=== PATIENT | female | born 1955 | race Caucasian/White ===

== ENCOUNTER → 2020-01-12 19:15 | Outpatient (ROUT) | payer MEDICARE, SELFPAY ==
[2020-01-12 20:01] LABS: Add Manual Diff / Slide Review NO; Basophils Absolute Auto 100 /uL (0-100); Basophils Percent Auto 0.6 % (0-2); Eosinophils Absolute Auto 200 /uL (0-450); Eosinophils Percent Auto 2.4 % (2-4); Hematocrit 41.3 % (36-46); Hemoglobin 13.5 g/dL (12.0-16.0); Lymphocytes Absolute Auto 3600 /uL (1100-4500); Lymphocytes Percent Auto 35.6 % (25-40); Mean Corpuscular HGB Conc 32.7 % (30-36); Mean Corpuscular Hemoglobin 31.2 PG (26-34); Mean Corpuscular Volume 95.5 fL (80-100); Monocytes Absolute Auto 700 /uL (0-900); Monocytes Percent Auto 6.6 % (3-14); Neutrophils Absolute Auto 5500 /uL (1500-7000); Neutrophils Percent Auto 54.8 % (50-75); Platelet Count 237 X10^3/uL (150-400); Red Blood Cell Count 4.33 X10^6/uL (4.0-5.2); Red Cell Distribution Width 13.3 % (11.6-14.8)
[2020-01-12 20:09] LABS: HEMOLYSIS < 15 (0-50); Iron 112 ug/dL (37-170)
[2020-01-12 20:14] LABS: Alanine Aminotransferase 18 IU/L (<35); Albumin 3.8 g/dL (3.5-5.0); Albumin Globulin Ratio 1.5 (1.0-2.8); Alkaline Phosphatase 78 U/L (38-126); Aspartate Aminotransferase 29 IU/L (14-36); Bilirubin Total 0.4 mg/dL (0.2-1.3); Blood Urea Nitrogen 16 mg/dL (7-17); C-Reactive Protein Quant 0.6 mg/dL (<1.0); Calcium 8.8 mg/dL (8.4-10.2); Carbon Dioxide 27 mmol/L (22-32); Chloride 108 mmol/L (98-107); Cholesterol 158 mg/dL (140-199); Estimated Glomerular Filt Rate > 60.0 mL/min (>60); Globulin 2.6 g/dL (1.7-4.1); Glucose 77 mg/dL (80-110); HDL Cholesterol 65 mg/dL (40-60); HEMOLYSIS < 15 (0-50); LDL Cholesterol Calculated 69 mg/dL (<100); Potassium 3.9 mmol/L (3.4-5.1); Sodium 138 mmol/L (137-145); Total Protein 6.4 g/dL (6.3-8.2); Triglycerides 121 mg/dL (35-150)
[2020-01-12 20:20] LABS: Percent Iron Saturation 31 % (15-50); Total Iron Binding Capacity 367 ug/dL (265-497); Transferrin 289 mg/dL (206-381)
[2020-01-12 20:21] LABS: Rheumatoid Factor < 8.6 IU/mL (<12.0)
[2020-01-12 20:29] LABS: Erythrocyte Sedimentation Rate 4 MM/HR (0-20)
[2020-01-12 20:36] LABS: Vitamin D 25 Hydroxy (D3) 50.7 ng/mL (30.0-100.0)
[2020-01-12 20:47] LABS: Ferritin 41 ng/mL (11-264)
[2020-01-12 21:01] LABS: Vitamin B12 986 pg/mL (239-931)
[2020-01-14 17:42] LABS: ANA Screen, IFA Negative (.)
== END ==
PROVIDERS: Visit Provider Physician Assistant
DX: R32 Unspecified urinary incontinence (principal); E78.2 Mixed hyperlipidemia; M79.10 Myalgia, unspecified site; E55.9 Vitamin D deficiency, unspecified; G89.4 Chronic pain syndrome; M54.9 Dorsalgia, unspecified; M54.30 Sciatica, unspecified side
CPT/HCPCS: 80053; 80061; 82306; 82607; 82728; 83540; 83550; 85025; 85651; 86038; 86140; 86430

== ENCOUNTER → 2020-05-18 11:04 | Outpatient (CLI) | payer MEDICARE, MEDICAID, SELFPAY ==
--- NOTE | 2020-05-18 | DI.RAD.S_ITS ---
PROCEDURE: XR CHEST 2V INDICATIONS: Encounter for screening for malignant neoplasm of respiratory TECHNIQUE: 2 views of the chest were acquired. COMPARISON: None. FINDINGS: Surgical changes and devices: None. Lungs and pleura: Lungs are clear. No pleural effusions or pneumothorax. Mediastinum: Mediastinal contours are normal. Heart size is normal. Bones and chest wall: No suspicious bony abnormalities. Soft tissues appear unremarkable. IMPRESSION: No acute cardiopulmonary disease. Dictated by: Adalgisa Dominguez M.D. on 05/18/2020 at 11:41 Approved by: Adalgisa Dominguez M.D. on 05/18/2020 at 11:42
== END ==
PROVIDERS: PCP Physician Assistant; Referring Provider Physician Assistant; Visit Provider Physician Assistant
DX: Z12.2 Encounter for screening for malignant neoplasm of respiratory organs (principal); Z87.891 Personal history of nicotine dependence
CPT/HCPCS: 71046

== ENCOUNTER → 2020-05-25 16:34 | Outpatient (CLI) | payer MEDICARE, MEDICAID, SELFPAY ==
--- NOTE | 2020-05-25 16:38 | DI.MG.S_ITS ---
BILATERAL DIGITAL SCREENING MAMMOGRAM 3D/2D WITH CAD: 05/25/2020 CLINICAL: Routine screening. Breast cancer. Family history of breast cancer. Comparison is made to exam dated: 12/27/2018 mammogram - outside location. There are scattered fibroglandular elements in both breasts. Current study was also evaluated with a Computer Aided Detection (CAD) system. There is an irregular equal density asymmetry in the left breast posterior depth superior region seen on the mediolateral oblique view only. This is more prominent and increased in size. No other significant masses, calcifications, or other findings are seen in either breast. IMPRESSION: INCOMPLETE: NEEDS ADDITIONAL IMAGING EVALUATION The irregular equal density asymmetry in the left breast resembles a post-surgical scar and is indeterminate. Additional views with possible ultrasound are recommended. This exam was interpreted at Station ID: [id number]. NOTE: For mammograms, a report in lay terms will be sent to the patient. Approximately 15% of breast malignancies will not be visualized mammographically. In the management of a palpable breast mass, a negative mammogram must not discourage biopsy of a clinically suspicious lesion. Electronically Signed By: Jaquan ospina/eve:05/26/2020 08:00:59 letter sent: Additional Imaging Needed ACR BI-RADS Category 0: Incomplete 3340F
== END ==
PROVIDERS: PCP Internal Medicine; Referring Provider Physician Assistant; Visit Provider Physician Assistant
DX: Z12.31 Encounter for screening mammogram for malignant neoplasm of breast (principal); C50.912 Malignant neoplasm of unspecified site of left female breast; Z80.3 Family history of malignant neoplasm of breast
CPT/HCPCS: 77063; 77067

== ENCOUNTER → 2020-06-03 15:00 | Outpatient (CLI) | payer MEDICARE, MEDICAID, SELFPAY ==
--- NOTE | 2020-06-03 15:03 | DI.MG.S_ITS ---
UNILATERAL LEFT DIGITAL DIAGNOSTIC MAMMOGRAM 3D/2D WITH ADDITIONAL VIEWS: 06/03/2020 CLINICAL: Additional evaluation requested from prior study. Comparison is made to exams dated: 05/25/2020 mammogram - [facility], 12/27/2018 mammogram - outside location, 05/07/2009 mammogram - [facility], 06/09/2014 localization, and 06/22/2014 breast MRI - outside location. There are scattered fibroglandular elements in left breast. There is an irregular equal density asymmetry in the left breast posterior depth superior region seen on the mediolateral oblique view only. This is less prominent on additional view and there appears to be interspersed fat. No other significant masses or calcifications are seen in the breast. IMPRESSION: INCOMPLETE: NEEDS ADDITIONAL IMAGING EVALUATION The irregular equal density asymmetry in the left breast resembles a post-surgical scar and is indeterminate. A targeted ultrasound is recommended and will immediately follow. This exam was interpreted at Station ID: [id number]. NOTE: For mammograms, a report in lay terms will be sent to the patient. Approximately 15% of breast malignancies will not be visualized mammographically. In the management of a palpable breast mass, a negative mammogram must not discourage biopsy of a clinically suspicious lesion. Electronically Signed By: Steve Beltran M.D. slc/:06/03/2020 16:33:17 ACR BI-RADS Category 0: Incomplete [id number]
--- NOTE | 2020-06-03 15:03 | DI.US.S_ITS ---
LIMITED ULTRASOUND OF LEFT BREAST: 06/03/2020 CLINICAL: Patient returns today to evaluate a focal asymmetry in the left breast. Comparison is made to exams dated: 06/03/2020 mammogram, 05/25/2020 mammogram - [facility], 12/27/2018 mammogram, and 06/22/2014 breast MRI - outside location. Color flow and real-time ultrasound of the left breast 11-1 o'clock region were performed. العلي scale images of the real-time examination were reviewed. No mass in the region of the focal asymmetry seen on mammogram. IMPRESSION: BENIGN There is no sonographic evidence of malignancy. No mass in the region of the focal asymmetry seen on mammogram. This is most consistent with fibroglandular tissue or scar tissue. A 1 year screening mammogram is recommended. Exam findings were conveyed to the patient. This exam was interpreted at Station ID: [id number]. Electronically Signed By: Steve Beltran M.D. slc/:06/03/2020 17:07:22 letter sent: Normal Exam Ultrasound BI-RADS: 2 Benign
== END ==
PROVIDERS: PCP Internal Medicine; Referring Provider Internal Medicine; Visit Provider Internal Medicine
DX: R92.8 Other abnormal and inconclusive findings on diagnostic imaging of breast (principal); C50.912 Malignant neoplasm of unspecified site of left female breast; N64.89 Other specified disorders of breast
CPT/HCPCS: 76642; 77065; G0279

== ENCOUNTER → 2020-06-16 15:20 | Outpatient (CLI) | payer MEDICARE, MEDICAID, SELFPAY ==
[2020-06-16] MEDS: COVID-19 VACC #1, MRNA(MOD) 100 MCG/0.5 ML VIAL IM (15:31)
== END ==
PROVIDERS: PCP Internal Medicine; Visit Provider Internal Medicine
DX: Z23 Encounter for immunization (principal)
CPT/HCPCS: 0011A; 91301

== ENCOUNTER → 2020-07-14 15:01 | Outpatient (CLI) | payer MEDICARE, MEDICAID, SELFPAY ==
[2020-07-14] MEDS: COVID-19 VACC #2, MRNA(MOD) 100 MCG/0.5 ML VIAL IM (15:09)
== END ==
PROVIDERS: PCP Internal Medicine; Visit Provider Internal Medicine
DX: Z23 Encounter for immunization (principal)
CPT/HCPCS: 0012A; 91301

== ENCOUNTER 2020-10-08 18:39 | Emergency (ER) | payer MEDICARE, MEDICAID, SELFPAY ==
[2020-10-08 19:04] VITALS: BP 105/58; PULSE 97; RESP 18; TEMP 36.9; O2SAT 95; BMI 28.9
--- NOTE | 2020-10-08 19:09 | DI.RAD.S_ITS ---
PROCEDURE: XR CHEST 2V INDICATIONS: short of breath TECHNIQUE: 2 views of the chest were acquired. COMPARISON: [facility], CR, XR CHEST 2V, 05/18/2020, 11:19. FINDINGS: Surgical changes and devices: None. Lungs and pleura: Lungs are clear. No pleural effusions or pneumothorax. Mediastinum: Mediastinal contours are normal. Heart size is normal. Bones and chest wall: No suspicious bony abnormalities. Soft tissues appear unremarkable. Degenerative changes are seen in the spine. IMPRESSION: No acute cardiopulmonary abnormality. Dictated by: Aneudy Ortega M.D. on 10/08/2020 at 20:17 Approved by: Aneudy Ortega M.D. on 10/08/2020 at 20:18
[2020-10-08 19:33] LABS: COVID19 -Nasal RAPID Negative (Negative)
--- NOTE | 2020-10-08 21:48 | ED_ITS ---
HPI - URI/Sore Throat General Chief Complaint: Upper Respiratory Symptoms Stated Complaint: NASAL DRIP AND COUGH Time Seen by Provider: 10/08/20 21:40 Source: patient Mode of arrival: Ambulatory History of Present Illness HPI Narrative: 65-year-old woman with cough over the last 3-4 days with significant postnasal drip seem to irritate all of this. Medical history is significant for breast cancer, ADHD and of prior stroke for which she is on aspirin and atorvastatin. She does not have a productive cough, she is not having fevers but notes she is having sweats, the cough is keeping her up at night , she describes no lower extremity edema no abdominal pain no vomiting or diarrhea. Related Data Home Medications Medication Instructions Recorded Confirmed aspirin 81 mg tablet PO 03/16/20 atorvastatin 10 mg tablet 10 mg PO DAILY 03/16/20 03/16/20 cholecalciferol (vitamin D3) 25 25 mcg PO DAILY 03/16/20 03/16/20 mcg (1,000 unit) capsule (Vitamin D3) cyanocobalamin (vitamin B-12) 1,000 mcg PO DAILY 03/16/20 03/16/20 1,000 mcg tablet (Vitamin B-12) hydrocodone 5 mg-acetaminophen 325 1 tab PO Q6H PRN 03/16/20 03/16/20 mg tablet loratadine 10 mg tablet (Claritin) 10 mg PO DAILY 03/16/20 03/16/20 methylphenidate HCl 20 mg tablet 20 mg PO BID 03/16/20 03/16/20 (Ritalin) omega-3 fatty acids-fish oil 684 1,200 cap PO 03/16/20 mg-1,200 mg capsule,delayed release oxybutynin chloride 5 mg tablet 5 mg PO BID 03/16/20 03/16/20 turmeric 400 mg capsule 800 mg PO 03/16/20 Previous Rx's Medication Instructions Recorded tamoxifen 20 mg tablet 20 mg PO DAILY #90 tab 03/17/20 benzonatate 100 mg capsule 100 mg PO TID PRN #14 cap 10/08/20 fluticasone propionate 50 2 spray INTRANASAL DAILY #16 g 10/08/20 mcg/actuation nasal spray,suspension (Flonase Allergy Relief) Allergies Allergy/AdvReac Type Severity Reaction Status Date / Time bee venom protein (honey bee) Allergy Severe Anaphylaxis Verified 10/08/20 19:08 penicillin V Allergy Mild Swelling Verified 10/08/20 19:08 of Lip/Tongue/Throat prednisone AdvReac Mild Confusion Verified 10/08/20 19:08 Review of Systems Review of Systems Narrative: Remainder of complete review of systems is otherwise unremarkable except for that included in the HPI. Patient History Social History Smoking Status: Current some day smoker Smoking Status: Current some day smoker tobacco type: cigarettes alcohol intake frequency: other Substance Use Type: does not use Exam Narrative Exam Narrative: General: Moderately ill-appearing with significant nonproductive cough but Able to give a complete and coherent history. Well- nourished well-developed HEENT: Moist mucous membranes, normal sclera with reactive pupils, mildly erythematous posterior pharynx with posterior cobblestoning and mild cervical adenopathy Neck: No JVD, supple Respiratory: Lungs are essentially clear to auscultation, mild anterior sc attered wheezing that resolves with deep breathing and full and symmetrical air movement Cardiac: Regular rate and rhythm no murmurs no bruits Abdomen: Soft, nontender, good bowel tones, no flank pain Skin: Warm and dry, no rashes Neurologic: Grossly neurologically intact with no obvious asymmetries or abnormalities Extremities: No trauma, well perfused, no lower extremity edema Psych: Cooperative, appropriate insight and affect Initial Vital Signs Initial Vital Signs: Vital Signs Temperature 98.5 F 10/08/20 19:04 Pulse Rate 97 H 10/08/20 19:04 Respiratory Rate 18 10/08/20 19:04 Blood Pressure 105/58 L 10/08/20 19:04 Pulse Oximetry 95 10/08/20 19:04 Course Orders Ordered: ED Orders 10/08/20 19:09 XR chest 2V Stat 10/08/20 19:10 COVID19 -Nasal swab/Pre-Proc Stat Vital Signs Vital signs: Vital Signs - 8 hr 10/08/20 19:04 Temperature 98.5 F Pulse Rate 97 H Respiratory Rate 18 Blood Pressure 105/58 L Pulse Oximetry 95 MDM - URI/Sore Throat Lab Data Labs: Lab Results 10/08/20 Range/Units 19:10 SARS-CoV-2 (PCR) Negative (Negative) Imaging Data Chest x-ray: Radiologist's Impression: FINDINGS: Surgical changes and devices: None. Lungs and pleura: Lungs are clear. No pleural effusions or pneumothorax. Mediastinum: Mediastinal contours are normal. Heart size is normal. Bones and chest wall: No suspicious bony abnormalities. Soft tissues appear unremarkable. Degenerative changes are seen in the spine. IMPRESSION: No acute cardiopulmonary abnormality. Dictated by: Aneudy Ortega M.D. on 10/08/2020 at 20:17 MDM Narrative Medical decision making narrative: 65-year-old woman with cough over the last 3- 4 days with significant postnasal drip seem to irritate all of this. No evidence of pneumonia on physical exam or on chest x-ray. She is COVID negative. Will suggest that she treat the postnasal drip over the next couple nights with Afrin in the evenings to help with sleeping and Flonase in the mornings to prevent a symptoms in the 1st place. Will give her a prescription for Tessalon Perles and encouraged her to return should she have worsening symptoms after a brief period of improvement. She is safe for home discharge at this time Discharge Plan Departure Patient Disposition: Home Clinical Impression: Upper respiratory infection Qualifiers: URI type: unspecified viral URI Qualified Code(s): J06.9 - Acute upper respiratory infection, unspecified Instructions: DI for Viral Upper Respiratory Infection -- Adult Activity Restrictions/Additional Instructions: Thank you for coming in today You do not have COVID and you do not have pneumonia You do have significant postnasal drip and a viral syndrome that is making that worse. For the significant postnasal drip at night and to help you sleep, consider using [id number] Afrin nose spray. This is safe to use for 3-4 days in a row To help treat the problem of the postnasal drip in the 1st place, using Flonase nasal spray daily 1st thing in the morning can be helpful Use Tessalon Perles to help control the cough If you notice that you are getting dramatically worse, have increasing fevers or now a productive cough, you do need to come back to the ER for further evaluation Prescriptions were electronically transmitted to [facility] Prescriptions: New benzonatate 100 mg capsule 100 mg PO TID PRN (Reason: cough) Qty: 14 RF: 0 fluticasone propionate [Flonase Allergy Relief] 50 mcg/actuation spray,suspension 2 spray intranasal DAILY Qty: 16 RF: 0 No Action atorvastatin 10 mg Tablet 10 mg PO DAILY RF: 0 hydrocodone-acetaminophen 5-325 mg Tablet 1 tab PO Q6H PRN (Reason: Pain (Scale Score 1-3)) RF: 0 methylphenidate HCl [Ritalin] 20 mg Tablet 20 mg PO BID RF: 0 cyanocobalamin (vitamin B-12) [Vitamin B-12] 1,000 mcg Tablet 1,000 mcg PO DAILY RF: 0 aspirin 81 mg Tablet PO RF: 0 oxybutynin chloride 5 mg Tablet 5 mg PO BID RF: 0 loratadine [Claritin] 10 mg Tablet 10 mg PO DAILY RF: 0 cholecalciferol (vitamin D3) [Vitamin D3] 25 mcg (1,000 unit) Capsule 25 mcg PO DAILY RF: 0 [place] 3 Fish Oil 684-1,200 mg Capsule,Delayed Release(Dr/Ec) 1,200 cap PO RF: 0 turmeric 400 mg Capsule 800 mg PO RF: 0 tamoxifen 20 mg Tablet 20 mg PO DAILY Qty: 90 RF: 3 Referrals: Phoenix Almaraz MD [Primary Care Provider] -
[2020-10-08 22:01] VITALS: RESP 18; O2SAT 96
[2020-10-08] MEDS: BENZONATATE 100 MG CAPSULE PO (22:04)
== END 2020-10-08 22:05 | disposition home or self-care (01) ==
PROVIDERS: Emergency Provider Emergency Medicine; PCP Internal Medicine
DX: J06.9 Acute upper respiratory infection, unspecified (principal); R09.82 Postnasal drip; R05 Cough; Z20.822 Contact with and (suspected) exposure to COVID-19
CPT/HCPCS: 71046; 87635; 99283; C9803

== ENCOUNTER → 2020-11-19 12:35 | Outpatient (CLI) | payer MEDICARE, MEDICAID, SELFPAY ==
--- NOTE | 2020-11-19 | DI.CT.S_ITS ---
PROCEDURE: CT CHEST WO CON INDICATIONS: Orthopnea, worsening short of breath TECHNIQUE: Noncontrast 5 mm thick sections acquired from the pulmonary apices to the posterior costophrenic angles. 1 mm lung window, 5 mm thick coronal and sagittal and 7 mm axial MIP reformats were then acquired. For radiation dose reduction, the following was used: automated exposure control, adjustment of mA and/or kV according to patient size. COMPARISON: None. FINDINGS: Image quality: Excellent. Lungs and pleura: No acute air space opacities. No pleural effusions or pneumothorax. Central and peripheral airways are patent and normal in caliber. Minimal platelike atelectasis noted in the right lung base. Mediastinum: Heart size is normal. No pericardial effusion. No mediastinal adenopathy by size criteria. Thoracic aorta and central pulmonary arteries are normal in size. Esophagus is normal in caliber. No hiatal hernia. Bones and chest wall: No suspicious bony lesions. No vertebral body compression fractures. No axillary or supraclavicular adenopathy by size criteria. Thyroid gland unremarkable. Moderate degenerative disc disease and arthropathy noted in the mid to lower lumbar spine with anterolateral osteophytes. Abdomen: Visualized upper abdominal solid organs and bowel loops appear normal in the absence of contrast. IMPRESSION: Moderate thoracic spine degenerative disc disease and arthropathy. Otherwise unremarkable CT of the chest Approved by: Ravin Reno M.D. on 11/19/2020 at 12:33
== END ==
PROVIDERS: PCP Physician Assistant; Referring Provider Internal Medicine; Visit Provider Internal Medicine
DX: R06.01 Orthopnea (principal); M51.34 Other intervertebral disc degeneration, thoracic region; M47.814 Spondylosis without myelopathy or radiculopathy, thoracic region; R06.02 Shortness of breath
CPT/HCPCS: 71250

== ENCOUNTER → 2021-03-28 11:19 | Outpatient (CLI) | payer MEDICARE, MEDICAID, SELFPAY ==
--- NOTE | 2021-03-28 | DI.RAD.S_ITS ---
PROCEDURE: XR THORACIC SPINE 2V INDICATIONS: Chronic pain syndrome TECHNIQUE: 3 views of the thoracic spine were acquired. COMPARISON: [facility], CT, CT CHEST WO CON, 11/19/2020, 12:39. [facility], CR, XR CERVICAL SPINE 2V OR 3V, 03/28/2021, 11:31. [facility], CR, XR LUMBAR SPINE 2-3V, 03/28/2021, 11:31. FINDINGS: Bones: No fractures or dislocations. No suspicious bony lesions. 12 pairs of ribs are noted, and appear intact where visualized. Lumbar spine scoliosis. Moderate degenerative change in the thoracic spine. Soft tissues: No paravertebral stripe thickening. IMPRESSION: Moderate degenerative change in the thoracic spine. Dictated by: Steve Beltran M.D. on 03/28/2021 at 14:05 Approved by: Steve Beltran M.D. on 03/28/2021 at 14:07
--- NOTE | 2021-03-28 | DI.RAD.S_ITS ---
PROCEDURE: XR CERVICAL SPINE 2V OR 3V INDICATIONS: Chronic pain syndrome TECHNIQUE: 3 view(s) of the cervical spine were acquired. COMPARISON: [facility], CR, XR THORACIC SPINE 2V, 03/28/2021, 11:31. FINDINGS: Bones: No fractures or dislocations to the C7 level. The lateral masses of C1 appear intact on the odontoid view. Loss of lordosis which could be related to muscle spasm, rigidity or simply positional. Multilevel disc degeneration, most notably and severe at the C4-C5, C5-C6, C6-C7 and C7-T1 levels. Grade 1 retrolisthesis C4-C5 and C5-C6. Moderate multilevel mid and lower cervical spine facet joint arthropathy and uncovertebral hypertrophy. Soft tissues: No prevertebral soft tissue swelling. IMPRESSION: Loss of lordosis and multilevel spondylosis. Dictated by: Arsenio Borges [facility] Interpreted: Clint Soliz MD on 03/28/2021 at 13:42 Transcribed by: FANNY on 03/28/2021 at 13:43 Approved by: Clint Soliz M.D. on 03/28/2021 at 17:26
--- NOTE | 2021-03-28 | DI.RAD.S_ITS ---
PROCEDURE: XR HAND LT MIN 3V INDICATIONS: Chronic pain syndrome TECHNIQUE: 3 views of the hand(s) acquired. COMPARISON: [facility], CR, XR HAND RT MIN 3V, 03/28/2021, 11:31. FINDINGS: Bones: No fractures or dislocations. Carpal bones are normally aligned. Polyarticular joint space narrowing with periarticular osteophytosis, severe involving the triscaphe joint, the 1st CMC and 2nd MCP joint. Hook osteophyte involves the 2nd metacarpal head. Juxta-articular lucencies are present involving the 1st CMC joint, the 2nd and 5th MCP joints as well as multiple interphalangeal joints. Boutonniere deformity of the thumb noted. Soft tissues: No suspicious soft tissue calcifications. IMPRESSION: Sequelae of radiographic findings suspicious for inflammatory arthropathy. Correlate clinically. Dictated by: Arsenio Borges [facility] Interpreted: Clint Soliz MD on 03/28/2021 at 13:44 Transcribed by: FANNY on 03/28/2021 at 13:46 Approved by: Clint Soliz M.D. on 03/28/2021 at 17:26
--- NOTE | 2021-03-28 | DI.RAD.S_ITS ---
PROCEDURE: XR HAND RT MIN 3V INDICATIONS: Chronic pain syndrome TECHNIQUE: 3 views of the hand(s) acquired. COMPARISON: None. FINDINGS: Bones: No fractures or dislocations. Chronic appearing bony fragment adjacent to the ulnar styloid likely related to remote injury. Carpal bones are normally aligned. No suspicious bony lesions. Polyarticular joint space narrowing with periarticular osteophyte formation, most notably and severe involving the triscaphe joint, the 1st CMC joint, the 2nd MCP joint and the 3rd DIP joint. Juxta-articular lucencies involve the 1st CMC joint as well as multiple interphalangeal joints. Hook osteophyte involves the 2nd MTP joint. Boutonniere deformity also is noted. Soft tissues: No suspicious soft tissue calcifications. IMPRESSION: Sequelae of radiographic findings suspicious for inflammatory arthropathy. Correlate clinically. Dictated by: Arsenio Borges [facility] Interpreted: Clint Soliz MD on 03/28/2021 at 13:39 Transcribed by: FANNY on 03/28/2021 at 13:41 Approved by: Clint Soliz M.D. on 03/28/2021 at 17:25
--- NOTE | 2021-03-28 | DI.RAD.S_ITS ---
PROCEDURE: XR LUMBAR SPINE 2-3V INDICATIONS: Chronic pain syndrome TECHNIQUE: 3 views of the lumbar spine were acquired. COMPARISON: None. FINDINGS: Bones: 5 [id number] vertebrae are present. There are multilevel degenerative changes with anterior osteophytes at multiple levels and facet arthrosis in the lower lumbar spine. There is rightward curvature of the lumbar spine with a Tejada angle of 22?. The sacroiliac joints are normal. Both hips have degenerative changes consistent with osteoarthritis, worse on the right. Disc space narrowing at L2-3, L3-4, and L5-S1 consistent with disc disease. Grade 1 anterolisthesis at L4-5 likely secondary to facet arthrosis. No vertebral body compression fractures. No suspicious bony lesions. Soft tissues: Overlying bowel gas pattern is normal. No suspicious soft tissue calcifications. IMPRESSION: Degenerative changes of the lumbar spine with multilevel disc disease, facet arthrosis, and dextroscoliosis of the lumbar spine. Dictated by: Horacio Sevilla M.D. on 03/28/2021 at 16:07 Approved by: Horacio Sevilla M.D. on 03/28/2021 at 16:09
== END ==
PROVIDERS: PCP Physician Assistant; Referring Provider Physician Assistant; Visit Provider Physician Assistant
DX: F11.90 Opioid use, unspecified, uncomplicated (principal); G89.4 Chronic pain syndrome; M51.34 Other intervertebral disc degeneration, thoracic region; M51.36 Other intervertebral disc degeneration, lumbar region; M41.9 Scoliosis, unspecified; M47.812 Spondylosis without myelopathy or radiculopathy, cervical region
CPT/HCPCS: 72040; 72070; 72100; 73130

== ENCOUNTER → 2021-05-26 14:44 | Outpatient (CLI) | payer MEDICARE, MEDICAID, SELFPAY ==
--- NOTE | 2021-05-26 14:45 | DI.MG.S_ITS ---
BILATERAL DIGITAL SCREENING MAMMOGRAM 3D/2D WITH CAD: 05/26/2021 CLINICAL: Routine screening. Family history of breast cancer. Comparison is made to exams dated: 06/03/2020 ultrasound, 06/03/2020 mammogram, 05/25/2020 mammogram - [facility], and 12/27/2018 mammogram - outside location. There are scattered fibroglandular elements in both breasts. Current study was also evaluated with a Computer Aided Detection (CAD) system. There are benign post operative findings in the left breast. No significant masses, calcifications, or other findings are seen in either breast. There has been no significant interval change. IMPRESSION: BENIGN There is no mammographic evidence of malignancy. A 1 year screening mammogram is recommended. This exam was interpreted at Station ID: [id number]. NOTE: For mammograms, a report in lay terms will be sent to the patient. Approximately 15% of breast malignancies will not be visualized mammographically. In the management of a palpable breast mass, a negative mammogram must not discourage biopsy of a clinically suspicious lesion. Electronically Signed By: Aneudy mckeon/eve:05/26/2021 16:03:21 letter sent: Normal Exam ACR BI-RADS Category 2: Benign Finding(s) 3342F
== END ==
PROVIDERS: PCP Physician Assistant; Referring Provider Physician Assistant; Visit Provider Physician Assistant
DX: Z12.31 Encounter for screening mammogram for malignant neoplasm of breast (principal)
CPT/HCPCS: 77063; 77067

== ENCOUNTER → 2022-01-05 12:05 | Outpatient (CLI) | payer MEDICARE, MEDICAID, SELFPAY ==
--- NOTE | 2022-01-05 12:09 | DI.RAD.S_ITS ---
PROCEDURE: XR KNEE LT 3V INDICATIONS: PAIN IN LT KNEE TECHNIQUE: 3 views of the knee were acquired. COMPARISON: [facility], , KNEE 3V RIGHT, 09/30/2008, 15:25. FINDINGS: Bones: No fractures or dislocations. Moderate tricompartmental osteoarthritis is seen with joint space narrowing, subchondral sclerosis and prominent marginal osteophyte formation most notably in medial femoral tibial compartment. No patellar subluxation. No suspicious bony lesions. Soft tissues: Moderate suprapatellar joint effusion is seen. Ill-defined calcification is seen posterior to left knee measures 1.6 x 2.6 cm in size and may represent intra-articular loose body. IMPRESSION: 1. Moderate tricompartmental osteoarthritis most notably in medial femoral tibial compartment. No fracture or dislocation. 2. Moderate joint effusion and possible loose body as above. Dictated by: Bert Sheppard M.D. on 01/05/2022 at 14:23 Approved by: Bert Sheppard M.D. on 01/05/2022 at 14:24
--- NOTE | 2022-01-05 12:09 | DI.RAD.S_ITS ---
PROCEDURE: XR FOOT RT MIN 3V INDICATIONS: Pain in left knee TECHNIQUE: 3 views of the foot were acquired. COMPARISON: None. FINDINGS: Bones: No fractures or dislocations. Mild right foot joint osteoarthritic changes are seen with joint space narrowing and subchondral sclerosis. No suspicious bony lesions. Soft tissues: No tibiotalar joint effusion. Achilles tendon appears normal. IMPRESSION: Mild right foot osteoarthritis. No fracture or dislocation. No gross soft tissue abnormalities. Dictated by: Bert Sheppard M.D. on 01/05/2022 at 14:24 Approved by: Betr Sheppard M.D. on 01/05/2022 at 14:25
== END ==
PROVIDERS: PCP Physician Assistant; Referring Provider Physician Assistant; Visit Provider Physician Assistant
DX: M17.12 Unilateral primary osteoarthritis, left knee (principal); M19.071 Primary osteoarthritis, right ankle and foot; M25.462 Effusion, left knee; M25.562 Pain in left knee; M79.671 Pain in right foot
CPT/HCPCS: 73562; 73630

== ENCOUNTER → 2022-04-26 13:09 | Outpatient (CLI) | payer OTHER, MEDICAID, SELFPAY ==
--- NOTE | 2022-04-26 13:14 | DI.RAD.S_ITS ---
PROCEDURE: XR CHEST 2V INDICATIONS: bilateral hip pain, left shoulder pain, smoker TECHNIQUE: 2 views of the chest were acquired. COMPARISON: [facility], CR, XR CHEST 2V, 10/08/2020, 19:06. FINDINGS: Surgical changes and devices: None. Lungs and pleura: Lungs are clear. No pleural effusions or pneumothorax. Mediastinum: Mediastinal contours are normal. Heart size is normal. Bones and chest wall: No suspicious bony abnormalities. Soft tissues appear unremarkable. IMPRESSION: No acute process. Dictated by: Vin Earl M.D. on 04/26/2022 at 14:44 Transcribed by: CATHLEEN on 04/26/2022 at 14:45 Approved by: Vin Earl M.D. on 04/26/2022 at 16:17
--- NOTE | 2022-04-26 13:14 | DI.RAD.S_ITS ---
PROCEDURE: XR HIP W PEL IF DONE BILAT 2V INDICATIONS: bilateral hip pain, left shoulder pain, smoker TECHNIQUE: AP pelvis with lateral view(s) of the bilateral hip(s). COMPARISON: None. FINDINGS: Bones: No fractures or dislocations. Pelvic ring appears intact. No suspicious bony lesions. Mild joint space narrowing and periarticular osteophyte formation at the bilateral hip joints. Soft tissues: The visualized bowel gas pattern is normal. No suspicious soft tissue calcifications. IMPRESSION: Bilateral hip osteoarthritis. No acute fracture. No osseous lesion. If symptoms and/or clinical suspicion for pathology persist, further assessment with repeat, or advanced imaging (e.g., CT, MRI, or bone scan) may be helpful for further assessment. Dictated by: Vin Earl M.D. on 04/26/2022 at 14:43 Transcribed by: CATHLEEN on 04/26/2022 at 14:44 Approved by: Vin Earl M.D. on 04/26/2022 at 16:16
--- NOTE | 2022-04-26 13:14 | DI.RAD.S_ITS ---
PROCEDURE: XR SHOULDER LT MIN 2V INDICATIONS: bilateral hip pain, left shoulder pain, smoker TECHNIQUE: 4 views of the shoulder were acquired. COMPARISON: [facility], CR, XR CHEST 2V, 10/08/2020, 19:06. FINDINGS: Bones: No fractures or dislocations. Sclerosis within the superomedial humeral head. Visualized ribs appear intact. Periarticular osteophyte formation at the acromioclavicular and glenohumeral joints. Soft tissues: No suspicious soft tissue calcifications. IMPRESSION: 1. Sclerosis within the left humeral head, which is indeterminate. Initial further assessment with shoulder MRI with and without intravenous contrast is recommended. Dictated by: Vin Earl M.D. on 04/26/2022 at 14:45 Approved by: Vin Earl M.D. on 04/26/2022 at 14:48
== END ==
PROVIDERS: PCP Physician Assistant; Referring Provider Physician Assistant; Visit Provider Physician Assistant
DX: M16.0 Bilateral primary osteoarthritis of hip (principal); M25.551 Pain in right hip; M25.552 Pain in left hip; M25.512 Pain in left shoulder; G89.29 Other chronic pain; F17.200 Nicotine dependence, unspecified, uncomplicated
CPT/HCPCS: 71046; 73030; 73521

== ENCOUNTER → 2022-05-09 14:51 | Outpatient (CLI) | payer OTHER, MEDICAID, SELFPAY ==
--- NOTE | 2022-05-09 | DI.MRI.S_ITS ---
PROCEDURE: MR SHOULDER LT WO/W CON INDICATIONS: Subchondral sclerosis of left shoulder TECHNIQUE: Noncontrast oblique coronal T1 spin echo and T2 fast spin echo with fat saturation, oblique sagittal T1 spin echo and T2 fast spin echo with fat saturation, axial T1 spin echo and T2 fast spin echo with fat saturation through the shoulder. Post-contrast oblique coronal, oblique sagittal, and axial T1 spin echo with fat saturation through the shoulder. COMPARISON: [facility], CR, XR SHOULDER LT MIN 2V, 04/26/2022, 13:14. FINDINGS: Image quality: Excellent. Rotator cuff: Mild supraspinatus and infraspinatus tendinosis without a full-thickness tear visualized. The teres minor and subscapularis tendons are intact. There is no disproportionate rotator cuff muscle atrophy. Mild edema within the medial supraspinatus muscle could indicate a low-grade strain. Bones and bursae: No acute trabecular bone injury or fracture. Diffuse full-thickness cartilage loss throughout the glenohumeral joint with subchondral sclerosis, marginal osteophyte formation, and chronic remodeling of the articular surfaces. Subchondral cystic changes are seen in the central glenoid. Chronic traction cystic changes are seen at the posterosuperior humeral head and greater tuberosity near the rotator cuff tendon insertions. There is a large glenohumeral effusion with moderate synovial hypertrophy. Bulging of the joint capsule is seen extending medially towards the spinoglenoid notch. No focal denervation changes are seen. A 7 mm intra-articular loose body is seen in the posterior joint capsule. Mild widening of the acromioclavicular joint may be related to prior postsurgical changes or remote prior injury. There is a trace amount of bursal thickening and enhancement along the subacromial/subdeltoid bursa. No suspicious enhancing intraosseous mass. Capsule and soft tissues: There is diffuse labral degeneration and chronic degenerative tearing. The proximal biceps long head tendon demonstrates mild tendinosis. The glenohumeral ligaments appear to be intact. IMPRESSION: 1. Diffuse full-thickness cartilage loss throughout the glenohumeral joint with subchondral sclerosis, subchondral cystic changes, and remodeling and flattening of the articular surfaces. Findings may be related to primary osteoarthrosis or a chronic indolent infectious or inflammatory process with superimposed degenerative changes. 2. Large glenohumeral effusion with moderate enhancing synovial hypertrophy as well as a 7 mm intra-articular loose body posteriorly. Bulging of the joint capsule is seen with fluid extending into the region of the spinoglenoid notch. No acute denervation or chronic denervation changes are seen. 3. Mild tendinosis of the proximal biceps long head tendon. 4. Mild supraspinatus and infraspinatus tendinosis without a significant rotator cuff tendon tear. Mild edema within the medial supraspinatus muscle could represent a low-grade strain. 5. Mild widening of the acromioclavicular joint may be secondary to prior postsurgical changes or a remote prior injury. 6. Mild subacromial/subdeltoid bursal thickening or bursitis. Approved by: Aneudy Ortega M.D. on 05/09/2022 at 16:43
== END ==
PROVIDERS: PCP Physician Assistant; Referring Provider Physician Assistant; Visit Provider Physician Assistant
DX: M25.512 Pain in left shoulder (principal); M25.819 Other specified joint disorders, unspecified shoulder; M25.412 Effusion, left shoulder
CPT/HCPCS: 73223

== ENCOUNTER → 2022-09-25 14:12 | Outpatient (CLI) | payer OTHER, SELFPAY ==
--- NOTE | 2022-09-25 | DI.MG.S_ITS ---
BILATERAL DIGITAL SCREENING MAMMOGRAM 3D/2D WITH CAD: 09/25/2022 CLINICAL: Routine screening. Bilateral history of breast Cancer. Family history of breast cancer. Comparison is made to exams dated: 05/26/2021 mammogram, 05/25/2020 mammogram - , and 12/27/2018 mammogram - outside location. There are scattered areas of fibroglandular density in both breasts (category b / 25%-50% glandular tissue). Current study was also evaluated with a Computer Aided Detection (CAD) system. There are benign post operative findings in the left breast. No significant masses, calcifications, or other findings are seen in either breast. There has been no significant interval change. IMPRESSION: BENIGN There is no mammographic evidence of malignancy. A 1 year screening mammogram is recommended. This exam was interpreted at Station ID: [id number]. NOTE: For mammograms, a report in lay terms will be sent to the patient. Approximately 15% of breast malignancies will not be visualized mammographically. In the management of a palpable breast mass, a negative mammogram must not discourage biopsy of a clinically suspicious lesion. Electronically Signed By: Derrek allen/eve:09/25/2022 15:49:16 copy to: Dorina Lee letter sent: Normal Exam ACR BI-RADS Category 2: Benign Finding(s) 3342F
== END ==
PROVIDERS: PCP Physician Assistant; Referring Provider Physician Assistant; Visit Provider Physician Assistant
DX: Z12.31 Encounter for screening mammogram for malignant neoplasm of breast (principal); Z85.3 Personal history of malignant neoplasm of breast; Z80.3 Family history of malignant neoplasm of breast
CPT/HCPCS: 77063; 77067

== ENCOUNTER → 2022-10-13 10:40 | Outpatient (CLI) | payer OTHER, SELFPAY ==
--- NOTE | 2022-10-13 10:41 | DI.NM.S_ITS ---
PROCEDURE: NM BONE SCAN WHOLE BODY RADIOPHARMACEUTICAL: 20.3 mCi Tc-99m MDP IV. INDICATIONS: Bone pain, left breast cancer TECHNIQUE: Delayed whole-body scintigrams were obtained approximately 3-4 hours after intravenous injection of radiotracer. Anterior and posterior views were acquired from vertex to feet. Additional left and right oblique views of the chest were obtained. COMPARISON: None. FINDINGS: Degenerative uptake of radiotracer at the acromioclavicular and glenohumeral joints as well as the left greater than right knee joints. The patient appears to be status post right knee medial compartment arthroplasty. No evidence of increased radiotracer uptake to indicate metastatic disease. IMPRESSION: 1. Osteoarthritis. 2. No evidence of metastatic disease. Dictated by: Vin Earl M.D. on 10/13/2022 at 15:05 Approved by: Vin Earl M.D. on 10/13/2022 at 15:07
== END ==
PROVIDERS: PCP Physician Assistant; Referring Provider Internal Medicine Hematology & Oncology; Visit Provider Internal Medicine Hematology & Oncology
DX: C50.912 Malignant neoplasm of unspecified site of left female breast (principal); M19.90 Unspecified osteoarthritis, unspecified site
CPT/HCPCS: 78306; A9503

== ENCOUNTER 2022-10-28 10:08 | Emergency (ER) | payer OTHER, SELFPAY ==
[2022-10-28 10:20] VITALS: BP 140/73; PULSE 90; RESP 14; TEMP 36.7; O2SAT 99; BMI 27.8
--- NOTE | 2022-10-28 10:26 | DI.RAD.S_ITS ---
PROCEDURE: XR CHEST 2V INDICATIONS: inhalation of soot TECHNIQUE: 2 views of the chest were acquired. COMPARISON: [facility], , XR CHEST 2V, 04/26/2022, 13:14. FINDINGS: Surgical changes and devices: None. Lungs and pleura: Lungs are clear. No pleural effusions or pneumothorax. Mediastinum: Mediastinal contours are normal. Heart size is normal. Bones and chest wall: No suspicious bony abnormalities. Soft tissues appear unremarkable. Degenerative dorsal spine changes IMPRESSION: No acute cardiopulmonary findings Approved by: Ravin Reno M.D. on 10/28/2022 at 10:19
--- NOTE | 2022-10-28 12:39 | ED_ITS ---
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 There is concern that the dust had some asbestos in it from the boat and maybe some soot. She immediately started coughing and clearing [place] mucus from her nose. She reports being treated by oxygen by EMS in [place] prior to transport, but unclear if she was desaturating at that time. She is a smoker, smokes about half pack per week times many years. She denies any previous history of asthma, COPD, other lung disease. She denies any current shortness of breath, chest pain, nausea vomiting. Related Data Home Medications Medication Instructions Recorded Confirmed cholecalciferol (vitamin D3) 25 25 mcg PO DAILY 03/16/20 03/16/20 mcg (1,000 unit) capsule (Vitamin D3) cyanocobalamin (vitamin B-12) 1,000 mcg PO DAILY 03/16/20 03/16/20 1,000 mcg tablet (Vitamin B-12) loratadine 10 mg tablet (Claritin) 10 mg PO DAILY 03/16/20 03/16/20 methylphenidate HCl 20 mg tablet 20 mg PO BID 03/16/20 03/16/20 (Ritalin) omega-3 fatty acids-fish oil 684 1,200 cap PO 03/16/20 mg-1,200 mg capsule,delayed release turmeric 400 mg capsule 800 mg PO 03/16/20 venlafaxine 75 mg tablet 75 mg PO DAILY 03/30/21 03/30/21 Previous Rx's Medication Instructions Recorded benzonatate 100 mg capsule 100 mg PO TID PRN cough #14 caps 10/08/20 fluticasone propionate 50 2 spray intranasal DAILY #16 grams 10/08/20 mcg/actuation nasal spray,suspension (Flonase Allergy Relief) Allergies Allergy/AdvReac Type Severity Reaction Status Date / Time bee venom protein (honey bee) Allergy Severe Anaphylaxis Verified 10/28/22 10:25 penicillin V Allergy Mild Swelling Verified 10/28/22 10:25 of Lip/Tongue/Throat prednisone AdvReac Mild Confusion Verified 10/28/22 10:25 Review of Systems <Autumn Haddad PA-C - Last Filed: 10/28/22 12:47> Review of Systems ROS Unobtainable: All systems reviewed & are unremarkable except as noted in HPI and below Patient History <Autumn Haddad PA-C - Last Filed: 10/28/22 12:47> Social History Smoking Status: Current some day smoker Smoking Status: Current some day smoker tobacco type: cigarettes alcohol intake frequency: other Substance Use Type: does not use Exam <Autumn Haddad PA-C - Last Filed: 10/28/22 12:47> Narrative Exam Narrative: GENERAL: 67 year old patient appears stated age. Well-developed patient, in no distress. NEURO: AOx3. ENT: Throat without erythema, tonsillar hypertrophy or exudate. Airway patent. NECK: Trachea midline. Non tender CARDIOVASCULAR: Regular rate and rhythm without murmurs, gallops, or rubs. RESPIRATORY: Clear to auscultation. Breath sounds equal bilaterally. No wheezes, rales, or rhonchi. SKIN: No rash or erythema of visible areas Initial Vital Signs Initial Vital Signs: Vital Signs Temperature 98.1 F 10/28/22 10:20 Pulse Rate 90 10/28/22 10:20 Respiratory Rate 14 10/28/22 10:20 Blood Pressure 140/73 10/28/22 10:20 Pulse Oximetry 99 10/28/22 10:20 Oxygen Delivery Method Room Air 10/28/22 10:20 <Marisela Petty DO - Last Filed: 10/29/22 07:16> Initial Vital Signs Initial Vital Signs: Vital Signs Temperature 98.1 F 10/28/22 10:20 Pulse Rate 90 10/28/22 10:20 Respiratory Rate 14 10/28/22 10:20 Blood Pressure 140/73 10/28/22 10:20 Pulse Oximetry 99 10/28/22 10:20 Oxygen Delivery Method Room Air 10/28/22 10:20 Course <Autumn Haddad PA-C - Last Filed: 10/28/22 12:47> Orders Ordered: ED Orders 10/28/22 10:26 XR chest 2V Stat Vital Signs Vital signs: Vital Signs - 8 hr 10/28/22 10:20 Temperature 98.1 F Pulse Rate 90 Respiratory Rate 14 Blood Pressure 140/73 Pulse Oximetry 99 Oxygen Delivery Method Room Air <Marisela Petty DO - Last Filed: 10/29/22 07:16> Orders Ordered: ED Orders 10/28/22 10:26 XR chest 2V Stat Vital Signs Vital signs: Vital Signs - 8 hr 10/28/22 10:20 Temperature 98.1 F Pulse Rate 90 Respiratory Rate 14 Blood Pressure 140/73 Pulse Oximetry 99 Oxygen Delivery Method Room Air MDM - URI/Sore Throat <Autumn Haddad PA-C - Last Filed: 10/28/22 12:47> Imaging Data Chest x-ray: My Impression: No acute cardiopulmonary abnl noted MDM Narrative Medical decision making narrative: Multiple etiologies for patient's symptoms considered including, but not limited to: Reactive airway after exposure to foreign substance, Asthma, COPD exacerbation, pneumonia. Patient has normal chest x-ray, oxygen saturation of 99% on room air, no wheeze or adventitious breath sounds on exam, and is in no distress while in the emergency department. She reports a sore throat. She may use [id number] cough drops, honey, Tea, ibuprofen or Tylenol for sore throat. She should follow up with a primary care physician. Provided reassurance that even if the substance inhaled today does contain asbestos, there is no treatment that can be given today. If she develops any difficulty breathing, chest pain, fever, she should return to the emergency room or seek other care. Patient's symptoms improved over duration of stay with above-stated therapies. Findings and discharge diagnosis discussed with patient/family followed by verbalization of understanding Return precautions discussed with patient/family whom verbalize understanding of diagnosis and plan Discharge Plan Departure Patient Disposition: Home Clinical Impression: Pharyngitis Instructions: DI for Viral Pharyngitis Activity Restrictions/Additional Instructions: *You have been diagnosed with sore throat after inhaling dust at work. You have a normal chest x-ray, oxygen saturation of 99% on room air, no wheeze or adventitious breath sounds on exam, and is in no distress while in the emergency department. She reports a sore throat. You may use [id number] cough drops, honey, Tea, ibuprofen or Tylenol for sore throat. You should follow up with a primary care physician. Provided reassurance that even if the substance inhaled today does contain asbestos, there is no treatment that can be given today. If you develop any difficulty breathing, chest pain, fever, she should return to the emergency room or seek other care. *What to do: *Please continue to take your regular medications as directed. [ ] New medication prescriptions sent to your pharmacy: [ ] [ ] New medication written as a paper prescription [ ] No new medications given *Please follow up with your primary care provider in 2-3 days, call for an appointment. Let them know you were seen in the Emergency Department and that we ask that you be seen in follow up. We will electronically transmit a record of today's note if your PCP is in our system *If you do not have a primary care provider please contact the [facility] Resource line at [phone]. They will ask some questions about your medical history and help get you set up with a doctor in the community. *Return to Emergency Department if you should have any new, worsening or concerning symptoms, such as [fever greater than 101 F, shaking chills, worsening pain, persistent vomiting or other bothersome symptoms] Prescriptions: No Action methylphenidate HCl [Ritalin] 20 mg Tablet 20 mg PO BID cyanocobalamin (vitamin B-12) [Vitamin B-12] 1,000 mcg Tablet 1,000 mcg PO DAILY loratadine [Claritin] 10 mg Tablet 10 mg PO DAILY cholecalciferol (vitamin D3) [Vitamin D3] 25 mcg (1,000 unit) Capsule 25 mcg PO DAILY [place] 3 Fish Oil 684-1,200 mg Capsule,Delayed Release(Dr/Ec) 1,200 cap PO turmeric 400 mg Capsule 800 mg PO venlafaxine [Effexor] 75 mg Tablet 75 mg PO DAILY benzonatate 100 mg capsule 100 mg PO TID PRN (Reason: cough) Qty: 14 0RF fluticasone propionate [Flonase Allergy Relief] 50 mcg/actuation spray,suspension 2 spray intranasal DAILY Qty: 16 0RF Rx Instructions: administer into each nostril Referrals: Malissa Jacques PA-C [Primary Care Provider] - Stand Alone Forms: Patient Portal/API <Marisela Petty DO - Last Filed: 10/29/22 07:16> Cosign ED Attending Cosignature Attestation: I was immediately available in the department for consultation. Documentation has been reviewed.
[2022-10-28 12:55] VITALS: BP 148/78; PULSE 80; RESP 17; O2SAT 100
== END 2022-10-28 12:56 | disposition home or self-care (01) ==
PROVIDERS: Emergency Provider Physician Assistant; PCP Physician Assistant
DX: J02.9 Acute pharyngitis, unspecified (principal); Z77.090 Contact with and (suspected) exposure to asbestos; Y99.0 Civilian activity done for income or pay; F17.200 Nicotine dependence, unspecified, uncomplicated; Y92.814 Boat as the place of occurrence of the external cause
CPT/HCPCS: 71046; 99283

== ENCOUNTER → 2022-10-31 11:10 | Outpatient (CLI) | payer OTHER, SELFPAY ==
--- NOTE | 2022-10-31 | DI.CT.S_ITS ---
PROCEDURE: CT HEAD/BRAIN WO CON INDICATIONS: ACUTE INTRACTABLE HEADACHE TECHNIQUE: Noncontrast 4.5 mm thick angled axial sections acquired from the foramen magnum to the vertex, with coronal and sagittal reformats. For radiation dose reduction, the following was used: automated exposure control, adjustment of mA and/or kV according to patient size. COMPARISON: None. FINDINGS: Image quality: Mild streak artifact can be seen through the skull base. CSF spaces: Basal cisterns are patent. No extra-axial fluid collections. The ventricles are symmetric in size and shape. Brain: No intracranial bleeds or masses. There is cerebral volume loss for age, with resultant ventricular and sulcal prominence. There are periventricular and deep white matter chronic small vessel ischemic changes. There is intracranial internal carotid artery atherosclerosis. Skull and face: Calvarium and visualized facial bones appear intact, without suspicious lesions. Sinuses: Visualized sinuses and mastoids are clear. IMPRESSION: No acute intracranial hemorrhage is seen. No acute intracranial process is seen. Dictated by: Eulalio Richardson M.D. on 10/31/2022 at 10:43 Approved by: Eulalio Richardson M.D. on 10/31/2022 at 10:44
== END ==
PROVIDERS: PCP Physician Assistant; Referring Provider Physician Assistant; Visit Provider Physician Assistant
DX: R51.9 Headache, unspecified (principal)
CPT/HCPCS: 70450

== ENCOUNTER 2023-03-18 14:02 | Emergency (ER) | payer OTHER, SELFPAY ==
[2023-03-18 14:07] VITALS: BP 163/65; PULSE 126; RESP 18; TEMP 37.7; O2SAT 96; BMI 28.3
--- NOTE | 2023-03-18 14:31 | PC.NURSE ---
has a couple of red spots on the abd that looks like bug bites. small, red.
--- NOTE | 2023-03-18 14:41 | ED_ITS ---
HPI - Skin/Abscess/Foreign Bdy General Chief complaint: Skin/Abscess/Foreign Body Stated complaint: facial swelling Time Seen by Provider: 03/18/23 14:31 Source: patient Mode of arrival: Ambulatory Limitations: no limitations History of Present Illness HPI narrative: Patient is a 67-year-old female who is here for evaluation of swelling to both of her eyes and her upper lip. She states she thinks that it started yesterday but seems to have worsened throughout the day today. She has had similar symptoms in the past and she was given amoxicillin and she thinks that the symptoms resolved. She has seeing a dentist. She was having some dental work done. Is planning on getting implants in her upper teeth. She does feel like she is having some discomfort in her upper teeth. No vision changes. No foreign body sensation in her eyes. She has not on lisinopril. No new exposures that she knows of. No problems swallowing. No problems breathing. She denies fevers. No other skin rashes. Some nausea but no vomiting. Related Data Home Medications Medication Instructions Recorded Confirmed cholecalciferol (vitamin D3) 25 25 mcg PO DAILY 03/16/20 12/26/22 mcg (1,000 unit) capsule (Vitamin D3) cyanocobalamin (vitamin B-12) 1,000 mcg PO DAILY 03/16/20 12/26/22 1,000 mcg tablet (Vitamin B-12) loratadine 10 mg tablet (Claritin) 10 mg PO DAILY 03/16/20 12/26/22 methylphenidate HCl 20 mg tablet 20 mg PO BID 03/16/20 12/26/22 (Ritalin) omega-3 fatty acids-fish oil 684 1,200 cap PO 03/16/20 12/26/22 mg-1,200 mg capsule,delayed release turmeric 400 mg capsule 800 mg PO 03/16/20 12/26/22 venlafaxine 75 mg tablet 75 mg PO DAILY 03/30/21 12/26/22 atorvastatin 10 mg tablet 10 mg PO DAILY 12/26/22 12/26/22 hydrocodone 5 mg-acetaminophen 325 tab PO 12/26/22 12/26/22 mg tablet Previous Rx's Medication Instructions Recorded fluticasone propionate 50 2 spray intranasal DAILY #16 grams 10/08/20 mcg/actuation nasal spray,suspension (Flonase Allergy Relief) amoxicillin 500 mg capsule 500 mg PO Q8H #14 caps 12/26/22 amoxicillin 500 mg capsule 500 mg PO Q8H 5 days #15 caps 03/18/23 Allergies Allergy/AdvReac Type Severity Reaction Status Date / Time bee venom protein (honey bee) Allergy Severe Anaphylaxis Verified 12/26/22 08:28 penicillin V Allergy Mild Swelling Verified 12/26/22 08:56 of Lip/Tongue/Throat prednisone AdvReac Mild Confusion Verified 12/26/22 08:28 Review of Systems Constitutional Constitutional: Reports system reviewed and no additional complaints, except as documented ENT Ears, Nose, Mouth, and Throat: Reports system reviewed and no additional complaints, except as documented Cardiovascular Cardiovascular: Reports system reviewed and no additional complaints, except as documented Respiratory Respiratory: Reports system reviewed and no additional complaints, except as documented Integumentary/Breasts Skin/Breast: Reports system reviewed and no additional complaints, except as documented Hematologic/Lymphatic On Anticoagulants: No Allergic/Immunologic Allergic/Immunologic: Reports system reviewed and no additional complaints, except as documented Patient History Social History Smoking Status: Current some day smoker Smoking Status: Current some day smoker tobacco type: cigarettes alcohol intake frequency: other Substance Use Type: does not use Exam Initial Vital Signs Initial Vital Signs: Vital Signs Temperature 99.9 F H 03/18/23 14:07 Pulse Rate 126 H 03/18/23 14:07 Respiratory Rate 18 03/18/23 14:07 Blood Pressure 163/65 H 03/18/23 14:07 Pulse Oximetry 96 03/18/23 14:07 Oxygen Delivery Method Room Air 03/18/23 14:07 Const General: cooperative, comfortable and No ill appearing [facility] Head: normal to inspection and normocephalic Ears: hearing grossly normal bilaterally Nose: external nose normal Mouth: tongue normal, oropharynx normal, moist mucous membranes and lip abnormal (Swollen upper lip) Teeth and gingiva: poor dentition Throat: posterior oropharynx normal Resp Effort & Inspection: normal respiratory effort Auscultation: clear to auscultation bilaterally Cardio Rate: regular rate Skin Other: Patient does have what appears to be a swelling under her left eye. She is redness around her right eye. Swelling of her upper lip and under her nose. Extrem General: normal to inspection and capillary refill normal Course Orders Ordered: ED Orders 03/18/23 14:54 CT facial bones w con Stat 03/18/23 15:02 Basic Metabolic Panel Stat Complete Blood Count AUTO DIFF Stat Discontinued Medications Acetaminophen (Acetaminophen 325 Mg Tablet) 650 mg PO NOW ONE Stop: 03/18/23 15:31 Last Admin: 03/18/23 15:34 Dose: 650 mg Documented By: MITCHELL Amoxicillin (Amoxicillin 250 Mg Capsule) 500 mg PO NOW ONE Stop: 03/18/23 16:35 Last Admin: 03/18/23 16:38 Dose: 500 mg Documented By: MITCHELL Vital Signs Vital signs: Vital Signs - 8 hr 03/18/23 14:07 03/18/23 15:37 03/18/23 16:14 Temperature 99.9 F H Pulse Rate 126 H 92 H Respiratory Rate 18 19 Blood Pressure 163/65 H 130/79 Pulse Oximetry 96 99 Oxygen Delivery Method Room Air 03/18/23 16:30 03/18/23 16:31 03/18/23 16:31 Temperature Pulse Rate 91 H 91 H Respiratory Rate 21 24 Blood Pressure 136/62 Pulse Oximetry 92 94 Oxygen Delivery Method MDM - Skin/Abscess/Foreign Bdy Medical Records Attestation: I reviewed the patient's medical records. Lab Data Attestation: I reviewed the patient's lab results. 03/18/23 15:02 03/18/23 15:02 Labs: Lab Results 03/18/23 Range/Units 15:02 WBC 12.9 H (4.5-11.0) X10^3/uL RBC 4.31 (4.0-5.2) X10^6/uL Hgb 13.2 (12.0-16.0) g/dL Hct 39.5 (36-46) % MCV 91.6 (80-100) fL MCH 30.7 (26-34) PG MCHC 33.5 (30-36) % RDW 13.6 (11.6-14.8) % Plt Count 295 (150-400) X10^3/uL Neut % (Auto) 67.8 (50-75) % Lymph % (Auto) 20.0 L (25-40) % [place] % (Auto) 9.1 (3-14) % Eos % (Auto) 2.2 (2-4) % Baso % (Auto) 0.9 (0-2) % Neut # (Auto) 8700 H (7121-9221) /uL Lymph # (Auto) 2600 (6822-7711) /uL [place] # (Auto) 1200 H (0-900) /uL Eos # (Auto) 300 (0-450) /uL Baso # (Auto) 100 (0-100) /uL Sodium 137 (137-145) mmol/L Potassium 3.7 (3.4-5.1) mmol/L Chloride 103 (98-107) mmol/L Carbon Dioxide 28 (22-32) mmol/L BUN 14 (7-17) mg/dL Creatinine 0.68 (0.52-1.04) mg/dL Estimated GFR > 60 (>60) mL/min BUN/Creatinine Ratio 20.6 (6-22) Glucose 99 (80-110) mg/dL Calcium 9.3 (8.4-10.2) mg/dL Imaging Data CT face: Radiologist's Impression: PROCEDURE: CT FACIAL BONES W CON INDICATIONS: eval for maxillary/periorbital cellulitis TECHNIQUE: After the administration of intravenous contrast, 2.5 mm axial sections acquired from the mid-neck to the frontal sinuses, with coronal and sagittal reformats. For radiation dose reduction, the following was used: automated exposure control, adjustment of mA and/or kV according to patient size. COMPARISON: None. FINDINGS: Image quality: Excellent. Soft tissues: Generalized soft tissue swelling can be seen of the central face as well as the periorbital regions, right worse than left. No abnormal soft tissue gas can be seen. No loculated fluid collections are seen to suggest facial abscess. No postseptal involvement can be seen of the orbits. Vascular: Visualized vascular structures appear patent throughout. Bony vascular foramina and canals appear normal. Bones: Facial bones appear intact, without fractures, erosions, or destruction. Visualized portions of the skull base and auditory canals also appear normal. Note is made of poor dentition, with areas of focal lucency surrounding several of the maxillary teeth roots anteriorly. Sinuses: Paranasal sinuses are aerated without fluid levels, mucosal thickening, or mucoceles. Mastoid air cells are aerated. IMPRESSION: Facial swelling, which is attributed to cellulitis, without soft tissue gas or drainable abscess collection. MDM Narrative Medical decision making narrative: No respiratory distress. Tolerating secretions. He has no vision changes. No foreign body sensation in her eyes. She is done on a medication that I would suspect would cause angioedema. She has no known exposures. She is some physical exam findings that would be consistent with an allergic reaction but also considered cellulitis. She does have somewhat poor dentition. States she has had similar issues in the past. She was put on amoxicillin and states that the symptoms improved very quickly. She did state that she has had an adverse reaction to penicillin in the past but has taken amoxicillin without any issue. Unsure whether or not this is an allergic reaction or cellulitis. CT scan shows no deep abscess. She does have a slight leukocytosis. Since it has worked for her in the past we will put her back on amoxicillin. She was given 1st dose here in the ER and a prescription was sent to the pharmacy of choice. I have no concern for airway compromise in the moment. Will discharge her home with strict return precautions. She expressed understanding and agreement. Discharge Plan Departure Patient Disposition: Home Clinical Impression: Cellulitis Instructions: DI for Cellulitis -- Adult Activity Restrictions/Additional Instructions: Take the medications as directed. It is important that you follow-up with your dentist. Return to the emergency department for new symptoms. Prescriptions: New amoxicillin 500 mg capsule 500 mg PO Q8H 5 Days Qty: 15 0RF No Action atorvastatin 10 mg tablet 10 mg PO DAILY hydrocodone-acetaminophen 5-325 mg tablet PO amoxicillin 500 mg capsule 500 mg PO Q8H Qty: 14 0RF Rx Instructions: Take 2 tablets today, then 1 tablet every 8 hours for the next 3-4 days methylphenidate HCl [Ritalin] 20 mg Tablet 20 mg PO BID cyanocobalamin (vitamin B-12) [Vitamin B-12] 1,000 mcg Tablet 1,000 mcg PO DAILY loratadine [Claritin] 10 mg Tablet 10 mg PO DAILY cholecalciferol (vitamin D3) [Vitamin D3] 25 mcg (1,000 unit) Capsule 25 mcg PO DAILY [place] 3 Fish Oil 684-1,200 mg Capsule,Delayed Release(Dr/Ec) 1,200 cap PO turmeric 400 mg Capsule 800 mg PO venlafaxine [Effexor] 75 mg Tablet 75 mg PO DAILY fluticasone propionate [Flonase Allergy Relief] 50 mcg/actuation spray,suspension 2 spray intranasal DAILY Qty: 16 0RF Rx Instructions: administer into each nostril Referrals: Malissa Jacques PA-C [Primary Care Provider] - Stand Alone Forms: Patient Portal/API, Work Release Note
--- NOTE | 2023-03-18 14:54 | DI.CT.S_ITS ---
PROCEDURE: CT FACIAL BONES W CON INDICATIONS: eval for maxillary/periorbital cellulitis TECHNIQUE: After the administration of intravenous contrast, 2.5 mm axial sections acquired from the mid-neck to the frontal sinuses, with coronal and sagittal reformats. For radiation dose reduction, the following was used: automated exposure control, adjustment of mA and/or kV according to patient size. COMPARISON: None. FINDINGS: Image quality: Excellent. Soft tissues: Generalized soft tissue swelling can be seen of the central face as well as the periorbital regions, right worse than left. No abnormal soft tissue gas can be seen. No loculated fluid collections are seen to suggest facial abscess. No postseptal involvement can be seen of the orbits. Vascular: Visualized vascular structures appear patent throughout. Bony vascular foramina and canals appear normal. Bones: Facial bones appear intact, without fractures, erosions, or destruction. Visualized portions of the skull base and auditory canals also appear normal. Note is made of poor dentition, with areas of focal lucency surrounding several of the maxillary teeth roots anteriorly. Sinuses: Paranasal sinuses are aerated without fluid levels, mucosal thickening, or mucoceles. Mastoid air cells are aerated. IMPRESSION: Facial swelling, which is attributed to cellulitis, without soft tissue gas or drainable abscess collection. Dictated by: Eulalio Richardson M.D. on 03/18/2023 at 15:18 Approved by: Eulalio Richardson M.D. on 03/18/2023 at 15:21
[2023-03-18 15:14] LABS: Add Manual Diff / Slide Review NO; Basophils Absolute Auto 100 /uL (0-100); Basophils Percent Auto 0.9 % (0-2); Eosinophils Absolute Auto 300 /uL (0-450); Eosinophils Percent Auto 2.2 % (2-4); Hematocrit 39.5 % (36-46); Hemoglobin 13.2 g/dL (12.0-16.0); Lymphocytes Absolute Auto 2600 /uL (1100-4500); Mean Corpuscular HGB Conc 33.5 % (30-36); Mean Corpuscular Hemoglobin 30.7 PG (26-34); Mean Corpuscular Volume 91.6 fL (80-100); Monocytes Absolute Auto 1200 /uL (0-900); Monocytes Percent Auto 9.1 % (3-14); Neutrophils Absolute Auto 8700 /uL (1500-7000); Neutrophils Percent Auto 67.8 % (50-75); Platelet Count 295 X10^3/uL (150-400); Red Blood Cell Count 4.31 X10^6/uL (4.0-5.2); Red Cell Distribution Width 13.6 % (11.6-14.8); White Blood Cell Count 12.9 X10^3/uL (4.5-11.0)
[2023-03-18] MEDS: ACETAMINOPHEN 325 MG TABLET 650 MG PO (15:34)
[2023-03-18 15:37] VITALS: PULSE 92; RESP 19; O2SAT 99
[2023-03-18 15:42] LABS: BUN Creatinine Ratio 20.6 (6-22); Blood Urea Nitrogen 14 mg/dL (7-17); Calcium 9.3 mg/dL (8.4-10.2); Carbon Dioxide 28 mmol/L (22-32); Chloride 103 mmol/L (98-107); Estimated Glomerular Filt Rate > 60 mL/min (>60); Glucose 99 mg/dL (80-110); HEMOLYSIS < 15 (0-50); Potassium 3.7 mmol/L (3.4-5.1); Sodium 137 mmol/L (137-145)
[2023-03-18 16:14] VITALS: BP 130/79
[2023-03-18 16:30] VITALS: PULSE 91; RESP 21; O2SAT 92
[2023-03-18 16:31] VITALS: BP 136/62; PULSE 91; RESP 24; O2SAT 94
[2023-03-18] MEDS: AMOXICILLIN 250 MG CAPSULE 500 MG PO (16:38)
== END 2023-03-18 16:50 | disposition home or self-care (01) ==
PROVIDERS: Emergency Provider Emergency Medicine; PCP Physician Assistant
DX: L03.211 Cellulitis of face (principal)
CPT/HCPCS: 36415; 70487; 80048; 85025; 99284; Q9967

== ENCOUNTER → 2023-07-27 10:24 | Outpatient (CLI) | payer MEDICARE, SELFPAY ==
--- NOTE | 2023-07-27 10:26 | DI.RAD.S_ITS ---
PROCEDURE: XR LUMBAR SPINE 2-3V INDICATIONS: BACK PAIN TECHNIQUE: 3 views of the lumbar spine were acquired. COMPARISON: [facility], , XR LUMBAR SPINE 2-3V, 03/28/2021, 11:31. FINDINGS: Bones: 5 [id number] vertebrae are present. Dextroscoliotic curvature of the lumbar spine is redemonstrated. Diffusely decreased osseous mineralization. Mild retrolisthesis of L3 on L4. Grade 1 anterolisthesis of L4 on L5. There is multilevel facet arthropathy, worse at L4-5 and L5-S1. Multilevel disc height loss with degenerative endplate changes and spurring is present. No vertebral body compression fractures. No suspicious bony lesions. Soft tissues: Overlying bowel gas pattern is normal. No suspicious soft tissue calcifications. IMPRESSION: Multilevel degenerative changes of the lumbar spine with dextroscoliotic curvature. Dictated by: Arnaldo Walker M.D. on 07/27/2023 at 14:11 Approved by: Arnaldo Walker M.D. on 07/27/2023 at 14:13
== END ==
PROVIDERS: PCP Physician Assistant; Referring Provider Physician Assistant; Visit Provider Physician Assistant
DX: M47.26 Other spondylosis with radiculopathy, lumbar region (principal); M47.27 Other spondylosis with radiculopathy, lumbosacral region; M41.9 Scoliosis, unspecified; G89.4 Chronic pain syndrome
CPT/HCPCS: 72100

== ENCOUNTER 2023-08-08 14:39 | Emergency (ER) | payer MEDICARE, SELFPAY ==
[2023-08-08] VITALS (9 sets, daily range): BP systolic 147–175; BP diastolic 69–93; PULSE 89–108; RESP 14–26; TEMP 36.9; O2SAT 95–99; BMI 31.1
--- NOTE | 2023-08-08 14:53 | DI.CT.S_ITS ---
PROCEDURE: CT ANGIO ABD/PEL GI BLEED INDICATIONS: GI Bleed TECHNIQUE: After the administration of intravenous contrast, 2.5 mm thick sections acquired from the diaphragm to the symphysis. 10 mm maximum-intensity projection (MIP) reformats were then acquired. For radiation dose reduction, the following was used: automated exposure control. COMPARISON: None. FINDINGS: Image Quality: Diagnostic. Abdominal aorta: No aortic aneurysm or evidence of acute aortic syndrome. Mesenteric arteries: Patent without hemodynamically significant stenosis. Renal arteries: Patent without hemodynamically significant stenosis. OTHER: Lower Chest: No significant findings. Liver: No solid mass. Gallbladder: No radiopaque gallstones or wall thickening. Biliary ducts: No biliary dilation. Pancreas: No ductal dilation. Spleen: Size is within normal limits. Adrenal Glands: No adrenal nodules. Kidneys and Ureters: No hydronephrosis. No solid mass. No complex renal cystic lesion which requires follow up. Stomach and Bowel: Normal colonic caliber, without significant wall thickening. Colonic diverticular present. There is a very slight appearance questionable increased enhancement at the level of the rectum. Appendix is within normal limits. Peritoneum: No abnormal intraperitoneal fluid. No free air. Ventral Wall: No hernia. Abdominal Nodes: No retroperitoneal or mesenteric adenopathy by size criteria. Vessels: Aorta and inferior vena cava are normal in size. PELVIS: Pelvic Organs: Unremarkable. Bladder: Unremarkable. Pelvic Nodes: No enlarged lymph nodes. Miscellaneous: No inguinal hernias are seen. Bones: No aggressive osseous abnormality. IMPRESSION: Colonic diverticular present. There is a very minimal appearance of questionable contrast blush at the level of the rectum. No priors are available for comparison. This could represent source of hemorrhage. Dictated by: Cecy Thomas M.D. on 08/08/2023 at 17:31 Approved by: Cecy Thomas M.D. on 08/08/2023 at 17:33
[2023-08-08 15:14] LABS: Add Manual Diff / Slide Review NO; Basophils Absolute Auto 100 /uL (0-100); Basophils Percent Auto 1.1 % (0-2); Eosinophils Absolute Auto 600 /uL (0-450); Eosinophils Percent Auto 6.2 % (2-4); Hematocrit 37.5 % (36-46); Hemoglobin 12.7 g/dL (12.0-16.0); Lymphocytes Absolute Auto 3000 /uL (1100-4500); Lymphocytes Percent Auto 31.9 % (25-40); Mean Corpuscular HGB Conc 33.7 % (30-36); Monocytes Absolute Auto 700 /uL (0-900); Neutrophils Absolute Auto 4900 /uL (1500-7000); Neutrophils Percent Auto 52.8 % (50-75); Platelet Count 314 X10^3/uL (150-400); Red Blood Cell Count 4.08 X10^6/uL (4.0-5.2); Red Cell Distribution Width 13.9 % (11.6-14.8); White Blood Cell Count 9.3 X10^3/uL (4.5-11.0)
--- NOTE | 2023-08-08 15:37 | ED.GIBLEED ---
HPI - GI Bleed General Chief complaint: GI Bleed Stated complaint: GI bleed Time Seen by Provider: 08/08/23 14:51 Source: patient Mode of arrival: Ambulatory History of Present Illness HPI Narrative: 68-year-old female who is here for evaluation of several days of worsening abdominal pain and bloating. She was not having any vomiting. No fevers. She has had a prior hysterectomy. Had a colonoscopy almost 9 years ago. She states that she was told that she had polyps. She is here because of the worsening bloating. She states she feels like she needs to have a bowel movement but has been unable to do so. Earlier today she would several episodes of bright red blood per rectum without any stool. She denies any urinary issues. Has not tried anything for her symptoms prior to arrival. Related Data Home Medications Medication Instructions Recorded Confirmed cholecalciferol (vitamin D3) 25 25 mcg PO DAILY 03/16/20 12/26/22 mcg (1,000 unit) capsule (Vitamin D3) cyanocobalamin (vitamin B-12) 1,000 mcg PO DAILY 03/16/20 12/26/22 1,000 mcg tablet (Vitamin B-12) loratadine 10 mg tablet (Claritin) 10 mg PO DAILY 03/16/20 12/26/22 methylphenidate HCl 20 mg tablet 20 mg PO BID 03/16/20 12/26/22 (Ritalin) omega-3 fatty acids-fish oil 684 1,200 cap PO 03/16/20 12/26/22 mg-1,200 mg capsule,delayed release turmeric 400 mg capsule 800 mg PO 03/16/20 12/26/22 venlafaxine 75 mg tablet 75 mg PO DAILY 03/30/21 12/26/22 atorvastatin 10 mg tablet 10 mg PO DAILY 12/26/22 12/26/22 hydrocodone 5 mg-acetaminophen 325 tab PO 12/26/22 12/26/22 mg tablet Previous Rx's Medication Instructions Recorded fluticasone propionate 50 2 spray intranasal DAILY #16 grams 10/08/20 mcg/actuation nasal spray,suspension (Flonase Allergy Relief) amoxicillin 500 mg capsule 500 mg PO Q8H #14 caps 12/26/22 Allergies Allergy/AdvReac Type Severity Reaction Status Date / Time bee venom protein (honey bee) Allergy Severe Anaphylaxis Verified 12/26/22 08:28 penicillin V Allergy Mild Swelling Verified 12/26/22 08:56 of Lip/Tongue/Throat prednisone AdvReac Mild Confusion Verified 12/26/22 08:28 Review of Systems Review of Systems Narrative: See HPI Patient History Social History Smoking Status: Current some day smoker Smoking Status: Current some day smoker tobacco type: cigarettes alcohol intake frequency: other Substance Use Type: does not use Exam Initial Vital Signs Initial Vital Signs: Vital Signs Temperature 98.5 F 08/08/23 14:44 Pulse Rate 108 H 08/08/23 14:44 Respiratory Rate 16 08/08/23 14:44 Blood Pressure 175/93 H 08/08/23 14:44 Pulse Oximetry 99 08/08/23 14:44 Oxygen Delivery Method Room Air 08/08/23 14:44 Const General: cooperative and healthy appearing HENMT Head: normal to inspection and normocephalic Resp Effort & Inspection: normal respiratory effort GI Inspection: normal to inspection and distended Palpation: soft, No firm, No guarding and No tender Skin General: no rashes or lesions noted Neuro General: patient alert, patient awake and moves all extremities Course Orders Ordered: ED Orders 08/08/23 14:53 CT angio Abd/Pel GI Bleed Stat 08/08/23 15:03 Complete Blood Count AUTO DIFF Stat Comprehensive Metabolic Panel Stat Lactate (Lactic Acid) Stat Lipase Stat Vital Signs Vital signs: Vital Signs - 8 hr 08/08/23 14:44 08/08/23 15:30 08/08/23 15:31 Temperature 98.5 F Pulse Rate 108 H 96 H 98 H Respiratory Rate 16 22 21 Blood Pressure 175/93 H Pulse Oximetry 99 99 99 Oxygen Delivery Method Room Air Room Air 08/08/23 15:31 08/08/23 16:00 08/08/23 16:00 Temperature Pulse Rate 89 Respiratory Rate 16 Blood Pressure 147/70 H 164/77 H Pulse Oximetry 98 Oxygen Delivery Method 08/08/23 16:30 08/08/23 16:30 08/08/23 17:02 Temperature Pulse Rate 92 H 90 Respiratory Rate 18 21 Blood Pressure 149/79 H Pulse Oximetry 98 96 Oxygen Delivery Method Room Air MDM - GI Bleed Lab Data Attestation: I reviewed the patient's lab results. 08/08/23 15:03 08/08/23 15:03 Labs: Lab Results 08/08/23 Range/Units 15:03 WBC 9.3 (4.5-11.0) X10^3/uL RBC 4.08 (4.0-5.2) X10^6/uL Hgb 12.7 (12.0-16.0) g/dL Hct 37.5 (36-46) % MCV 92.0 (80-100) fL MCH 31.0 (26-34) PG MCHC 33.7 (30-36) % RDW 13.9 (11.6-14.8) % Plt Count 314 (150-400) X10^3/uL Neut % (Auto) 52.8 (50-75) % Lymph % (Auto) 31.9 (25-40) % [place] % (Auto) 8.0 (3-14) % Eos % (Auto) 6.2 H (2-4) % Baso % (Auto) 1.1 (0-2) % Neut # (Auto) 4900 (8144-1007) /uL Lymph # (Auto) 3000 (0666-0339) /uL [place] # (Auto) 700 (0-900) /uL Eos # (Auto) 600 H (0-450) /uL Baso # (Auto) 100 (0-100) /uL Sodium 139 (137-145) mmol/L Potassium 3.7 (3.4-5.1) mmol/L Chloride 108 H (98-107) mmol/L Carbon Dioxide 27 (22-32) mmol/L BUN 22 H (7-17) mg/dL Creatinine 0.64 (0.52-1.04) mg/dL Estimated GFR > 60 (>60) mL/min BUN/Creatinine Ratio 34.4 H (6-22) Glucose 96 (80-110) mg/dL Lactate 0.7 (0.7-2.1) mmol/L Calcium 8.7 (8.4-10.2) mg/dL Total Bilirubin 0.3 (0.2-1.3) mg/dL AST 31 (14-36) IU/L ALT 27 (<35) IU/L Alkaline Phosphatase 105 (38-126) U/L Total Protein 6.7 (6.3-8.2) g/dL Albumin 3.8 (3.5-5.0) g/dL Globulin 2.9 (1.7-4.1) g/dL Albumin/Globulin Ratio 1.3 (1.0-2.8) Lipase 82 (23-300) U/L Imaging Data CT scan - abdomen/pelvis: Radiologist's Impression: PROCEDURE: CT ANGIO ABD/PEL GI BLEED INDICATIONS: GI Bleed TECHNIQUE: After the administration of intravenous contrast, 2.5 mm thick sections acquired from the diaphragm to the symphysis. 10 mm maximum-intensity projection (MIP) reformats were then acquired. For radiation dose reduction, the following was used: automated exposure control. COMPARISON: None. FINDINGS: Image Quality: Diagnostic. Abdominal aorta: No aortic aneurysm or evidence of acute aortic syndrome. Mesenteric arteries: Patent without hemodynamically significant stenosis. Renal arteries: Patent without hemodynamically significant stenosis. OTHER: Lower Chest: No significant findings. Liver: No solid mass. Gallbladder: No radiopaque gallstones or wall thickening. Biliary ducts: No biliary dilation. Pancreas: No ductal dilation. Spleen: Size is within normal limits. Adrenal Glands: No adrenal nodules. Kidneys and Ureters: No hydronephrosis. No solid mass. No complex renal cystic lesion which requires follow up. Stomach and Bowel: Normal colonic caliber, without significant wall thickening. Colonic diverticular present. There is a very slight appearance questionable increased enhancement at the level of the rectum. Appendix is within normal limits. Peritoneum: No abnormal intraperitoneal fluid. No free air. Ventral Wall: No hernia. Abdominal Nodes: No retroperitoneal or mesenteric adenopathy by size criteria. Vessels: Aorta and inferior vena cava are normal in size. PELVIS: Pelvic Organs: Unremarkable. Bladder: Unremarkable. Pelvic Nodes: No enlarged lymph nodes. Miscellaneous: No inguinal hernias are seen. Bones: No aggressive osseous abnormality. IMPRESSION: Colonic diverticular present. There is a very minimal appearance of questionable contrast blush at the level of the rectum. No priors are available for comparison. This could represent source of hemorrhage. MDM Narrative Medical decision making narrative: Patient does have a benign abdominal exam. CT scan shows no signs of obstruction or diverticulitis. Her physical exam and her history is most consistent with a colitis. No indication for antibiotics. Her vital signs are unremarkable. She was not anemic. No active bleeding. No recent travel. I suspect that your symptoms will improve that the next couple days. She does need a colonoscopy has a follow-up and I discuss this with her and she was given a follow-up information regarding this. She was given return precautions. She expressed understanding and agreement. Discharge Plan Departure Patient Disposition: Home Clinical Impression: Colitis, Abdominal pain, Rectal bleeding Instructions: DI for Abdominal Pain-Adult, DI for Colitis Activity Restrictions/Additional Instructions: Continue to take all of your medications as directed. I do recommend that for the next couple days you only have a bland diet. You may want to consider a liquid diet for now. You can advance this as tolerated. It is important that you follow-up with general surgery as you do need another colonoscopy. Return to the emergency department for new or worsening symptoms. Contact your primary doctor fora follow-up. Prescriptions: No Action atorvastatin 10 mg tablet 10 mg PO DAILY hydrocodone-acetaminophen 5-325 mg tablet PO amoxicillin 500 mg capsule 500 mg PO Q8H Qty: 14 0RF Rx Instructions: Take 2 tablets today, then 1 tablet every 8 hours for the next 3-4 days methylphenidate HCl [Ritalin] 20 mg Tablet 20 mg PO BID cyanocobalamin (vitamin B-12) [Vitamin B-12] 1,000 mcg Tablet 1,000 mcg PO DAILY loratadine [Claritin] 10 mg Tablet 10 mg PO DAILY cholecalciferol (vitamin D3) [Vitamin D3] 25 mcg (1,000 unit) Capsule 25 mcg PO DAILY [place] 3 Fish Oil 684-1,200 mg Capsule,Delayed Release(Dr/Ec) 1,200 cap PO turmeric 400 mg Capsule 800 mg PO venlafaxine [Effexor] 75 mg Tablet 75 mg PO DAILY fluticasone propionate [Flonase Allergy Relief] 50 mcg/actuation spray,suspension 2 spray intranasal DAILY Qty: 16 0RF Rx Instructions: administer into each nostril Referrals: Newton Palacio MD [Physician] - Malissa Jacques PA-C [Primary Care Provider] - Stand Alone Forms: Patient Portal/API
[2023-08-08 15:53] LABS: Lactate (Lactic Acid) 0.7 mmol/L (0.7-2.1)
[2023-08-08 15:54] LABS: Alanine Aminotransferase 27 IU/L (<35); Albumin 3.8 g/dL (3.5-5.0); Albumin Globulin Ratio 1.3 (1.0-2.8); Alkaline Phosphatase 105 U/L (38-126); Aspartate Aminotransferase 31 IU/L (14-36); BUN Creatinine Ratio 34.4 (6-22); Bilirubin Total 0.3 mg/dL (0.2-1.3); Blood Urea Nitrogen 22 mg/dL (7-17); Calcium 8.7 mg/dL (8.4-10.2); Carbon Dioxide 27 mmol/L (22-32); Chloride 108 mmol/L (98-107); Estimated Glomerular Filt Rate > 60 mL/min (>60); Globulin 2.9 g/dL (1.7-4.1); Glucose 96 mg/dL (80-110); HEMOLYSIS < 15 (0-50); Lipase 82 U/L (23-300); Potassium 3.7 mmol/L (3.4-5.1); Sodium 139 mmol/L (137-145); Total Protein 6.7 g/dL (6.3-8.2)
== END 2023-08-08 18:20 | disposition home or self-care (01) ==
PROVIDERS: Emergency Provider Emergency Medicine; PCP Physician Assistant
DX: K52.9 Noninfective gastroenteritis and colitis, unspecified (principal); K62.5 Hemorrhage of anus and rectum
CPT/HCPCS: 36415; 74174; 80053; 83605; 83690; 85025; 99283; 99284; Q9967

== ENCOUNTER → 2024-02-27 13:10 | Outpatient (CLI) | payer MEDICARE, SELFPAY | LOC: RESP 13:11 | PROVIDERS: PCP Physician Assistant; Referring Provider Student in an Organized Health Care Education/Training Program; Visit Provider Student in an Organized Health Care Education/Training Program | DX: R06.02 Shortness of breath (principal); R94.2 Abnormal results of pulmonary function studies | CPT/HCPCS: 94060; 94726; 94729 ==

== ENCOUNTER → 2024-06-05 16:38 | Outpatient (CLI) | payer MEDICARE, SELFPAY ==
--- NOTE | 2024-06-05 16:38 | DI.MG.S_ITS ---
MM screening mammo BI: 06/05/2024. BI-RADS: 2 CLINICAL: 69-year old female for bilateral screening mammogram. No Tyrer-Cuzick risk score calculation due to the patient's personal history of breast cancer. Patient reports a history of bilateral breast carcinoma diagnosed at age 34. Status-post bilateral lumpectomies with radiation therapy. Current reported family history of breast cancer: mother and sister. The patient had prior bilateral breast biopsies. PRIOR EXAMS 09/25/2022, 05/26/2021, 06/03/2020, 05/25/2020. MAMMOGRAPHY TECHNIQUE: 2D and 3D (tomosynthesis) digital mammographic views obtained, with additional images as needed for full coverage. Current study was also evaluated with a Computer Aided Detection (CAD) system. DENSITY B. There are scattered areas of fibroglandular density. MAMMOGRAPHY FINDINGS Right: No suspicious mass, asymmetry, microcalcification, or other abnormality seen. No significant change from comparison. Left: Benign-appearing post-surgical changes noted on the left. There are no suspicious masses, calcifications, or other findings in the breast. No significant change from comparison. IMPRESSION: Right * No evidence of malignancy. Left * No evidence of malignancy with benign findings. RECOMMENDATIONS Bilateral * Annual screening mammography. OVERALL ASSESSMENT CATEGORY BI-RADS-2: Benign. The [employer] recommends annual screening mammography beginning at age 40 for women with average risk of breast cancer. ELECTRONICALLY SIGNED: Cecy Anguiano M.D. on 06/06/2024 at 10:00:43 PM PT Interpreting Station ID: [id number]
== END ==
LOC: MAMMO 16:38
PROVIDERS: PCP Physician Assistant; Referring Provider Physician Assistant; Visit Provider Physician Assistant
DX: Z12.31 Encounter for screening mammogram for malignant neoplasm of breast (principal); Z85.3 Personal history of malignant neoplasm of breast; Z80.3 Family history of malignant neoplasm of breast
CPT/HCPCS: 77063; 77067

== ENCOUNTER 2024-10-01 13:44 | Emergency (ER) | payer MEDICARE, SELFPAY ==
[2024-10-01 13:55] VITALS: BP 152/83; PULSE 98; RESP 18; TEMP 37.2; O2SAT 99; BMI 27.2
--- NOTE | 2024-10-01 13:59 | DI.RAD.S_ITS ---
PROCEDURE: XR KNEE LT 3V INDICATIONS: pain/swelling TECHNIQUE: 3 views of the knee were acquired. COMPARISON: [facility], CR, XR KNEE LT 3V, 01/05/2022, 12:14. FINDINGS: Bones: No fractures or dislocations. No suspicious bony lesions. There is moderate medial femorotibial joint space narrowing seen, with associated remodeling changes, including subchondral sclerosis and osteophyte formation along the jointline. Several calcified/ossified foci can be seen posteriorly, which are consistent with intra-articular bodies within a Brown's cyst. Soft tissues: There is a moderate joint effusion. No suspicious soft tissue calcifications. IMPRESSION: Moderate joint effusion. Underlying degenerative changes are seen. If it would be helpful for clinical management decision making, please consider a dedicated, scheduled knee MRI for further evaluation (assuming that there is no contraindication). Dictated by: Eulalio Richardson M.D. on 10/01/2024 at 13:34 Approved by: Eulalio Richardson M.D. on 10/01/2024 at 13:35
--- NOTE | 2024-10-01 16:24 | ED.EXTPRO ---
HPI - Extremity Problem General Chief complaint: Extremity Problem,Nontraumatic Stated complaint: L Knee Pain Time Seen by Provider: 10/01/24 15:37 Source: patient Mode of arrival: Ambulatory History of Present Illness HPI Narrative: Ms. Seals is a pleasant 69-year-old female with a past medical history of breast cancer, reactive airway disease, arthritis on pain management who presents to the emergency department for left knee pain since 5:00 p.m. yesterday. Patient denies any inciting injury or trauma, the pain started when she went to walk up a flight of stairs after installing lights in her garden. Now she is having diffuse swelling and pain of the knee worse on the anterior and popliteal fossa region. No numbness, tingling, weakness, lower extremity or calf pain or swelling. No redness, increased warmth or fevers. She takes hydrocodone every day for her chronic arthritis pain. She is prior right knee replacement. Related Data Home Medications ?Medication ?Instructions ?Recorded ?Confirmed cholecalciferol (vitamin D3) 25 25 mcg PO DAILY 03/16/20 03/26/24 mcg (1,000 unit) capsule (Vitamin D3) cyanocobalamin (vitamin B-12) 1,000 mcg PO DAILY 03/16/20 03/26/24 1,000 mcg tablet (Vitamin B-12) loratadine 10 mg tablet (Claritin) 10 mg PO DAILY 03/16/20 03/26/24 atorvastatin 10 mg tablet 10 mg PO DAILY 12/26/22 03/26/24 hydrocodone 5 mg-acetaminophen 325 tab PO 12/26/22 03/26/24 mg tablet albuterol sulfate 90 mcg/actuation 2 puff inhalation Q4-6H 02/06/24 03/26/24 aerosol inhaler dextroamphetamine-amphetamine 10 1 tab PO QAM attention deficit 02/06/24 03/26/24 mg tablet hyperactivity disorder dextroamphetamine-amphetamine ER 1 cap PO QAM attention deficit 02/06/24 03/26/24 20 mg 24hr capsule,extend release hyperactivity disorder polyethylene glycol 3350 17 g PO DIRECTED 02/06/24 03/26/24 gram/dose oral powder Previous Rx's ?Medication ?Instructions ?Recorded fluticasone propionate 50 2 spray intranasal DAILY #16 grams 10/08/20 mcg/actuation nasal spray,suspension (Flonase Allergy Relief) budesonide-formoterol HFA 160 2 puff inhalation BID #10.2 grams 03/26/24 mcg-4.5 mcg/actuation aerosol inhaler (Symbicort) Allergies Allergy/AdvReac Type Severity Reaction Status Date / Time bee venom protein (honey bee) Allergy Severe Anaphylaxis Verified 03/26/24 11:13 penicillin V Allergy Mild Swelling Verified 03/26/24 11:13 of Lip/Tongue/Throat prednisone AdvReac Mild Confusion Verified 03/26/24 11:13 Review of Systems Review of Systems ROS Unobtainable: All systems reviewed & are unremarkable except as noted in HPI and below Patient History Medical History Reactive airways dysfunction syndrome Shortness of breath Social History Smoking Status: Former smoker Smoking Status: Former smoker tobacco type: cigarettes alcohol intake frequency: other Exam Narrative Exam Narrative: GENERAL: 69 year old patient appears stated age. Well-developed patient, in no acute distress. HEAD: Atraumatic. Normocephalic. NECK: Trachea midline. Cervical ROM intact. CARDIOVASCULAR: Regular rate RESPIRATORY: ?Nonlabored respirations. ?Speaking in clear, full sentences. EXTREMITIES: 2+ DP and PT pulses bilaterally, brisk capillary refill in the toes and sensation intact to light touch in the toes. Patient has diffuse swelling of the left knee and tenderness to palpation of the anterior left knee and the left popliteal fossa. No redness, increased warmth or streaking erythema. No rashes. No calf swelling or tenderness. Patient has pain with flexion, extension and internal and external rotation of the knee. BACK: Nontender without deformity or crepitance. No flank tenderness. NEURO: AOx3. ?Clear speech. ?Moves all 4 extremities appropriately with the exception of left knee. SKIN: No rash or erythema of visible areas Initial Vital Signs Initial Vital Signs: Vital Signs Temperature 99 F 10/01/24 13:55 Pulse Rate 98 H 10/01/24 13:55 Respiratory Rate 18 10/01/24 13:55 Blood Pressure 152/83 H 10/01/24 13:55 Pulse Oximetry 99 10/01/24 13:55 Oxygen Delivery Method Room Air 10/01/24 13:55 Course Orders Ordered: ED Orders 10/01/24 13:59 XR knee LT 3V Stat Discontinued Medications Ketorolac Tromethamine (Ketorolac 30 Mg/Ml Vial) 30 mg IM NOW ONE Stop: 10/01/24 16:45 Last Admin: 10/01/24 17:05 Dose: 30 mg Documented By: [facility] Vital Signs Vital signs: Vital Signs - 8 hr 10/01/24 13:55 Temperature 99 F Pulse Rate 98 H Respiratory Rate 18 Blood Pressure 152/83 H Pulse Oximetry 99 Oxygen Delivery Method Room Air MDM - Extremity (Nontraumatic) Medical Records Attestation: I reviewed the patient's medical records. Imaging Data Left Knee X-Ray: Radiologist's Impression: PROCEDURE: XR KNEE LT 3V INDICATIONS: pain/swelling TECHNIQUE: 3 views of the knee were acquired. COMPARISON: [facility], , XR KNEE LT 3V, 01/05/2022, 12:14. FINDINGS: Bones: No fractures or dislocations. No suspicious bony lesions. There is moderate medial femorotibial joint space narrowing seen, with associated remodeling changes, including subchondral sclerosis and osteophyte formation along the jointline. Several calcified/ossified foci can be seen posteriorly, which are consistent with intra-articular bodies within a Brown's cyst. Soft tissues: There is a moderate joint effusion. No suspicious soft tissue calcifications. IMPRESSION: Moderate joint effusion. Underlying degenerative changes are seen. If it would be helpful for clinical management decision making, please consider a dedicated, scheduled knee MRI for further evaluation (assuming that there is no contraindication). Dictated by: Eulalio Richardson M.D. on 10/01/2024 at 13:34 Approved by: Eulalio Richardson M.D. on 10/01/2024 at 13:35 [facility] Narrative Medical decision making narrative: 69-year-old female with a past medical history of breast cancer, reactive airway disease, arthritis on pain management who presents to the emergency department for left knee pain since 5:00 p.m. yesterday. Differential diagnosis includes but isn't limited to left knee sprain, strain, arthritis, Brown cyst, effusion, fracture, dislocation, etc. On exam patient is in no acute distress, nontoxic appearing. Left knee is diffusely swollen without erythema, increased warmth, rashes or streaking erythema. She is pain with range of motion and bearing weight. Physical exam not concerning for infection. X-ray obtained revealing moderate joint effusion, underlying degenerative changes and several calcified/ossified foci seen posteriorly consistent with intra-articular bodies Within a Brown cyst. Discussed knee immobilizer versus Kiran wrap with the patient. She would like to proceed with Kiran wrap and crutches, recommended rice therapy, weight-bearing as tolerated, ibuprofen and Tylenol, home hydrocodone, follow up with ortho for further management. We will treat with Toradol in the ED. She verbalized understanding of all information agreeable with the plan. She is stable for discharge home. Discharge Plan Departure Patient Disposition: Home Clinical Impression: Effusion of knee joint, left, Arthritis of knee, left, Synovial cyst of popliteal space [Brown], left knee Instructions: DI for Brown Cyst Activity Restrictions/Additional Instructions: Dear Kerri Arnel, Today you were evaluated for left knee pain. Your x-ray reveals a left knee effusion, arthritis and a Brown cyst. It is very important to follow up with [facility] for further management. Please use RICE therapy for your pain in addition to ibuprofen/acetaminophen. Rest the painful area. Ice the area of pain/swelling for at least 15 minutes, 4x a day. Compress the area of swelling using a brace, wrap, or splint if applied. Elevate the painful or swollen extremity by supporting it above the level of the heart with pillows when sitting or laying. Please take Ibuprofen (Motrin/Advil) or Acetaminophen (Tylenol) for pain. These are available over the counter. You may take Ibuprofen 600 mg every 8 hours with food for pain. You may also take Acetaminophen 650 mg every 4-6 hours for pain. Do not exceed 3000 mg of Tylenol a day as this can cause liver damage. Do not drink alcohol with either of these medications. Please return to the emergency department if you develop redness or heat of the leg, fevers, increased swelling of the calf, or any other concerns. Please follow up with your primary care doctor within the next 2-3 days for ER follow-up. (If you do not have a PCP you can call [phone]. ?to schedule an appointment with an [facility] Primary Care Provider) IF YOU DEVELOP ANY NEW OR WORSENING SYMPTOMS, RETURN TO THE ER! Please read the attached instructions, they highlight more specific treatments and interventions for you at home. Thank you for letting me participate in your care, Saira Brittany Wahl PA-C Prescriptions: No Action atorvastatin 10 mg tablet 10 mg PO DAILY hydrocodone-acetaminophen 5-325 mg tablet PO cyanocobalamin (vitamin B-12) [Vitamin B-12] 1,000 mcg Tablet 1,000 mcg PO DAILY loratadine [Claritin] 10 mg Tablet 10 mg PO DAILY cholecalciferol (vitamin D3) [Vitamin D3] 25 mcg (1,000 unit) Capsule 25 mcg PO DAILY fluticasone propionate [Flonase Allergy Relief] 50 mcg/actuation spray,suspension 2 spray intranasal DAILY Qty: 16 0RF Rx Instructions: administer into each nostril dextroamphetamine-amphetamine 20 mg capsule,extended release 24hr 1 cap PO QAM dextroamphetamine-amphetamine 10 mg tablet 1 tab PO QAM albuterol sulfate 90 mcg/actuation HFA aerosol inhaler 2 puff inhalation Q4-6H polyethylene glycol 3350 17 gram/dose powder PO DIRECTED budesonide-formoterol [Symbicort] 160-4.5 mcg/actuation HFA aerosol inhaler 2 puff inhalation BID Qty: 10.2 3RF Referrals: Arthur Quiles MD [Physician, Orthopedic Surgery] Referral Note: L knee arthritis Malissa Jacques PA-C [Primary Care Provider, Medical] Stand Alone Forms: Patient Portal/API, Work Release Note
[2024-10-01] MEDS: KETOROLAC 30 MG/ML VIAL IM (17:05)
== END 2024-10-01 17:24 | disposition home or self-care (01) ==
PROVIDERS: Emergency Provider Physician Assistant; PCP Physician Assistant
DX: M25.462 Effusion, left knee (principal); M71.22 Synovial cyst of popliteal space [Baker], left knee; M17.12 Unilateral primary osteoarthritis, left knee
CPT/HCPCS: 73562; 96372; 99283; J1885

== ENCOUNTER 2024-12-15 11:30 | Outpatient (RCR) | payer MEDICARE, SELFPAY ==
--- NOTE | 2024-11-04 15:29 | PT.OPPOC ---
Physical, Occupational & Speech Therapy At [facility] Current Diagnoses Unilateral primary osteoarthritis, left knee (11/04/24) Pain in left knee (11/04/24) Visit Care Team Role Provider Type Malissa Jacques PA-C Family Provider Advanced Water Operator Primary Care Provider Specialty: Medical Address: [address] [place] [address], [id number] Email: Arthur Quiles MD Attending Provider Physician Referring Provider Specialty: Orthopedic Surgery Address: [address] [place] [address], [id number] Email: [email or web address] Plan Of Care PT OP: Lower Back/Lower Extremity Start: 11/03/24 17:30 Freq: Status: Active Protocol: Document 11/04/24 13:49 [facility] (Rec: 11/04/24 14:34 [facility] [id number]) Out-Patient Physical Therapy Visit Information Visit Information Visit Type Initial Evaluation Visit Start Time 13:48 Visit Stop Time 14:30 Visit Number 1 Number of PHOTO LAB TECHNICIAN Visits 0 Progress Note Due 12/04/24 Precautions Precautions latex allergy Current Condition History of Current Condition Onset Date October 01 Current Complaints L knee pain History of Current Pt reports she works on [employer]. Went back to Condition work this week. She was supposed to do 2 tens and had to leave after her 8 hour shift. She worked a 10 and she had to come off in WC d/t swelling in knee and leg. She has a compression brace that helps her walk. She has a high co pay so is worried about this. She works in the [employer] and is standing the entire time. She picked up a couple heavy boxes and felt her knee taking her down and her boss is letting her only doing 8 hours. She was going up the stairs after taking the dog out (15 stairs) and when she went to turn to come up, she felt behind her knee pull and it swelled immediately. Took her 45 min to get in d/t pain and was alone. couldn't lift her leg and was crying in pain. started on crutches and went ot cane. Going down isn't so bad, but going up is painful. Some aching before this but like this. Said it was a brown's cyst from ortho and got a shot that helped for one day. Has hx of R knee replacement. wants to avoid L knee replacement. 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 No suspicious bony lesions. There is moderate medial femorotibial joint space narrowing seen, with associated remodeling changes, including subchondral sclerosis and osteophyte formation along the jointline. Several calcified/ossified foci can be seen posteriorly , which are consistent with intra-articular bodies within a Brown's cyst. Soft tissues: There is a moderate joint effusion. No suspicious soft tissue calcifications. IMPRESSION: Moderate joint effusion. Underlying degenerative changes are seen. Treatment Goals Patient/Caregiver dec pain and be able to work full shifts w/o pain, be Goals able to go up/down stairs, swelling to go away, go for walks w/dog (at least .5 mile) Patient Questionnaires Lower Extremity Functional Scale LEFS Score 37/80 Knee Goniometric Range of Motion Knee Measured in Degrees Right Flexion Active ( 125 degrees) Extension Active ( 0 degrees) Left Flexion Active ( 97 degrees) Extension Active ( 20 degrees) Special Tests Knee Special Tests jt line tenderness Comments positive med Apley's Compression Comments positive Jessica Test Comments neg (stayed in pt range) Hip Strength Hip Manual Muscle Testing Right Flexion (L2) 4- Good- Extension (S1) 3+ Fair+ Abduction 4- Good- Adduction 4 Good External Rotation 4- Good- Internal Rotation 4+ Good+ Left Flexion (L2) 3+ Fair+ Extension (S1) 3+ Fair+ Abduction 3+ Fair+ Adduction 3 Fair External Rotation 3+ Fair+ Internal Rotation 3+ Fair+ Comments pain IR and flex Knee Strength Knee Manual Muscle Testing Right Flexion (S2) 5 Normal Extension (L3) 5 Normal Left Flexion (S2) 3+ Fair+ Extension (L3) 3+ Fair+ Comments pain both Ankle/Foot Strength Ankle and Foot Manual Muscle Testing R Dorsiflexion (L4) 5 Normal Plantarflexion (S1) 5 Normal Comments seated L Dorsiflexion (L4) 4 Good Plantarflexion (S1) 4+ Good+ Therapeutic Exercises Supine Exercises quad sets Side left Equipment Used pillow under knee Reps/Minutes 5 sec x5 heel slides Side left Reps/Minutes 4 Manual Therapy Treatment Consent Patient gave verbal Yes consent for manual treatment Taping Knee Body Location L knee Type of Tape Kinesio Tape Comments I strip under patella for fat pad unloading Physical Therapy Assessment Rehab Potential Rehabilitation Good Potential Evaluation Complexity Number of Personal 3 or More Factors/ Comorbidities Number of Body 4 or More Systems Impaired Clinical Evolving Presentation at Evaluation Impairments Impairments Activity Tolerance,Balance,Functional Activities, Functional Mobility,Gait,Pain,Posture,ROM,Soft Tissue Mobility,Strength Other Concerns Barriers to high copay, only 2 days (sunday/) available based Rehabilitation on work schedule and won't know new schedule until Nov 29 limiting scheduling capacity Goals stairs Care Home Goal (LTG) Pt will be able to go up stairs w/o inc pain in L knee LTG Duration 01/14 activity High School Admissions Representative Goal (LTG) Pt will return to working 48 hours a week and walking dog .5 mile most days without inc pain in L knee greater than 2/10 LTG Duration 01/26 strength Short Term Goal (STG Pt will demonstrate independence w/HEP by being able to ) perform with no more than min cues. STG Duration 12/11 High School Admissions Representative Goal (LTG) Pt will score at least 4+/5 on all BLE MMT and at least 3/5 LPM to show improved strength to allow pt to return to active lifestyle LTG Duration 02/02 Assessment Summary Assessment Pt presents with 1 month ago acute onset of L knee pain when turning to go back up the stairs w/sharp pain that didn't allow her to lift her leg initially. She had to go to ER and got a cortisone shot which only helped for about 5 days. 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 She has significant L sided weakness with also history of CVA that affected her L side and pain w/MMT along w/ significantly dec ROM and tenderness to med joint line along w/positive apley's indicating possible meniscal tear along w/tricompartmental OA noted in X-ray and brown's cyst. She would benefit from skilled PT to address these deficits and return him to his typical active lifestyle including work, walking dog and stairs w/dec pain Physical Therapy Plan Frequency and Duration Frequency of 2x/Week Treatment Duration of 12 treatment (weeks) Plan of Care Start 11/04/24 Date Plan of Care End 02/02/25 Date Therapeutic Interventions Therapeutic Balance Training,Gait Training,Home Exercise Program, Interventions Joint Mobilizations,Manual Therapy,Neuromuscular Re- education,Patient/Caregiver Education,Self-Care/Home Management,Soft Tissue Mobilization,Taping,Therapeutic Activities,Therapeutic Exercises Modalities Cold Pack/Ice Massage,Electric Stimulation,Hot Packs, Infrared Therapy,Ultrasound Next Visit Focus/Plan Next Note Type Treatment Note Next Visit Plan review quad sets/heel slides, assess response to tape, work on manually to knee, quads, HS and calf, stretches to calf, quad, HS and self roll out, add bridges, sidesteps Plan of Care Dates Plan of Care Start Date 11/04/24 Plan of Care End Date 02/02/25 Electronically Signed by: Betty Merino, PT 11/04/24 3989 If you are in agreement with this Plan of Care, please return a signed and dated copy. I have reviewed this Plan of Care and certify that the skilled therapy services above are required to meet the patient?s needs. Physician Signature Date Printed Name and Credentials Clinical Instructor Signature Printed Name and Credentials
--- NOTE | 2024-11-25 17:35 | PT.OTN ---
Current Diagnoses Unilateral primary osteoarthritis, left knee (11/25/24) Pain in left knee (11/25/24) Physical Therapy Treatment Note PT OP: Lower Back/Lower Extremity Start: 11/03/24 17:30 Freq: Status: Active Protocol: Document 11/25/24 13:52 [facility] (Rec: 11/25/24 15:19 [facility] [id number]) Out-Patient Physical Therapy Visit Information Visit Information Visit Type Treatment Note Visit Start Time 13:52 Visit Stop Time 14:30 Visit Number 2 Number of DIRECTOR SPEECH LANGUAGE Visits 0 Progress Note Due 12/04/24 Precautions Precautions latex allergy OP-PT Subjective Patient Comments Patient Comments Pt reports she has been doing heel slides. Sciatic pain is back in LLE Therapeutic Exercises Supine Exercises bridge Supine Exercise Name pelvic tilt to glute squeeze lift Side bilateral Reps/Minutes 15 Comments inc time to get pelvic tilt w/cues quad sets Side left Equipment Used towel roll under knee Reps/Minutes 5 sec x4 Sitting Exercises stretches Sitting Exercise 1. HS B 2. piriformis L Name Reps/Minutes 60 sec ea Comments cues set up Standing Exercises stretch Standing Exercise 1. DL calf on stairs 2. quad on chair hand on wall Name Side bilateral Reps/Minutes 45 sec Comments cues set up sidestep Side bilateral Equipment Used orange band at knees (too difficult at ankles) Reps/Minutes 15ft Comments cues posture Manual Therapy Treatment Consent Patient gave verbal Yes consent for manual treatment Soft Tissue Mobilization post leg Body Location calf, HS L Mobilization Type Rolling Intensity/Depth Moderate Body Position Supine Joint Mobilizations tibfemoral Grade II Body Position Supine Comments AP tibia c/r tib fib Body Position Supine Comments proximal AP w/APs patellofemoral Grade III Body Position Supine Comments sup, inf, med L Physical Therapy Assessment Goals stairs Senior Living Goal (LTG) Pt will be able to go up stairs w/o inc pain in L knee LTG Duration 01/14 activity Chief Pharmacist Goal (LTG) Pt will return to working 48 hours a week and walking dog .5 mile most days without inc pain in L knee greater than 2/10 LTG Duration 01/26 strength Short Term Goal (STG Pt will demonstrate independence w/HEP by being able to ) perform with no more than min cues. STG Duration 12/11 Chief Pharmacist Goal (LTG) Pt will score at least 4+/5 on all BLE MMT and at least 3/5 LPM to show improved strength to allow pt to return to active lifestyle LTG Duration 02/02 Assessment Summary Assessment Pt had improved knee ext after manual. SHe did well with exercises and required cues to stay in comfortable range w/stretches. She hadL hip pain w/bridges initially but that got better after cueing. Physical Therapy Plan Frequency and Duration Frequency of 2x/Week Treatment Duration of 12 treatment (weeks) Plan of Care Start 11/04/24 Date Plan of Care End 02/02/25 Date Next Visit Focus/Plan Next Note Type Treatment Note Next Visit Plan review exercises, manual to pelvis, knee, HS, calf
--- NOTE | 2024-12-15 12:28 | PT.OPPN ---
Current Diagnoses Unilateral primary osteoarthritis, left knee (12/15/24) Pain in left knee (12/15/24) Physical Therapy Progress Note PT OP: Lower Back/Lower Extremity Start: 11/03/24 17:30 Freq: Status: Active Protocol: Document 12/15/24 11:40 [facility] (Rec: 12/15/24 12:28 [facility] [id number]) Out-Patient Physical Therapy Visit Information Visit Information Visit Type Progress Note Visit Start Time 11:38 Visit Stop Time 12:18 Visit Number 3 Number of PROJECT/PRODUCTION MANAGER IMAGING Visits 0 Progress Note Due 01/14/25 Precautions Precautions latex allergy OP-PT Subjective Patient Comments Patient Comments was sick for a week. Has done most of the exericses. Took dog for a walk. Did 2 laps around [employer] and felt tired after. Iced knee after. knee was sore. Knee Goniometric Range of Motion Knee Measured in Degrees Left Flexion Active ( 115 degrees) Extension Active ( 9 degrees) Hip Strength Hip Manual Muscle Testing Right Flexion (L2) 4- Good- Extension (S1) 3+ Fair+ Abduction 4 Good Adduction 4+ Good+ External Rotation 4- Good- Internal Rotation 4+ Good+ Left Flexion (L2) 4- Good- Extension (S1) 3+ Fair+ Abduction 3+ Fair+ Adduction 4- Good- External Rotation 4- Good- Internal Rotation 4+ Good+ Knee Strength Knee Manual Muscle Testing Right Flexion (S2) 5 Normal Extension (L3) 5 Normal Left Flexion (S2) 4- Good- Extension (L3) 3+ Fair+ Comments pain ext Ankle/Foot Strength Ankle and Foot Manual Muscle Testing R Dorsiflexion (L4) 5 Normal Plantarflexion (S1) 5 Normal Comments seated L Dorsiflexion (L4) 5 Normal Plantarflexion (S1) 4+ Good+ Gym Equipment Shuttle Recovery Unilateral Squats Details cues foot position Resistance 25# Shuttle Recovery Stable Platform Reps/Time 12 Bilateral Squats Details cues knees and foot position Resistance 75# Shuttle Recovery Stable Platform Reps/Time 20 Therapeutic Exercises Sitting Exercises stretches Sitting Exercise 1. HS B 2. piriformis L Name Reps/Minutes 60 sec ea Comments cues set up Standing Exercises stretch Standing Exercise 1. DL calf on stairs 2. quad on chair hand on wall L Name Side bilateral Reps/Minutes 30 sec ea Comments cues set up sidestep Side bilateral Equipment Used orange band at knees Reps/Minutes 15ft Comments cues posture Manual Therapy Treatment Consent Patient gave verbal Yes consent for manual treatment Soft Tissue Mobilization post leg Body Location calf, HS L Mobilization Type Rolling Intensity/Depth Moderate Body Position Supine Comments w/HS stretch and DF Joint Mobilizations tibfemoral Grade II Body Position Supine Comments AP tibia c/r patellofemoral Grade III Body Position Supine Comments sup, inf, med L Physical Therapy Assessment Goals stairs Casting Director Goal (LTG) Pt will be able to go up stairs w/o inc pain in L knee LTG Duration 01/14 activity Casting Director Goal (LTG) Pt will return to working 48 hours a week and walking dog .5 mile most days without inc pain in L knee greater than 04/21 12/15-has returned to working and did 1x dog walk-pain still after LTG Duration 01/26 strength Short Term Goal (STG Pt will demonstrate independence w/HEP by being able to ) perform with no more than min cues. 12/15-mod cues for 04/17 STG Duration 12/11 Casting Director Goal (LTG) Pt will score at least 4+/5 on all BLE MMT and at least 3/5 LPM to show improved strength to allow pt to return to active lifestyle 12/15-improving LTG Duration 02/02 Assessment Summary Assessment Pt making good progress towards PT goals at this time. She is improving with ROM and Strength along with functional ability. Progress is slow d/t dec frequency of scheduling d/t high copay and pt schedule with work and availability in PT schedule. She would benefit from cont PT to work on strength and mobility. Physical Therapy Plan Frequency and Duration Frequency of 2x/Week Treatment Duration of 12 treatment (weeks) Plan of Care Start 11/04/24 Date Plan of Care End 02/02/25 Date Therapeutic Interventions Therapeutic Balance Training,Gait Training,Home Exercise Program, Interventions Joint Mobilizations,Manual Therapy,Neuromuscular Re- education,Patient/Caregiver Education,Self-Care/Home Management,Soft Tissue Mobilization,Taping,Therapeutic Activities,Therapeutic Exercises Modalities Cold Pack/Ice Massage,Electric Stimulation,Hot Packs, Infrared Therapy,Ultrasound Next Visit Focus/Plan Next Note Type Treatment Note Next Visit Plan review exercises, manual to pelvis, knee, HS, calf
--- NOTE | 2025-02-26 16:02 | PT.OPDS ---
Current Diagnoses Unilateral primary osteoarthritis, left knee (12/15/24) Pain in left knee (12/15/24) Visit Care Team Role Provider Type Malissa Jacques PA-C Family Provider [employer] Primary Care Provider Specialty: Medical Address: [address] [place] [address], [place], [address] Email: Arthur Quiles MD Attending Provider Physician Referring Provider Specialty: Orthopedics Orthopedic Surgery Address: [address] [place] [address], [id number] Email: [email or web address] Visit Number Visit Number 3 Discharge Summary PT OP: Lower Back/Lower Extremity Start: 11/03/24 17:30 Freq: Status: Active Protocol: Document 02/26/25 16:01 [facility] (Rec: 02/26/25 16:01 [facility] [id number]) Out-Patient Physical Therapy Visit Information Visit Information Visit Type Discharge Summary Physical Therapy Assessment Goals stairs Correction Goal (LTG) Pt will be able to go up stairs w/o inc pain in L knee LTG Duration 01/14 activity Correction Goal (LTG) Pt will return to working 48 hours a week and walking dog .5 mile most days without inc pain in L knee greater than 2/10 12/15-has returned to working and did 1x dog walk-pain still after LTG Duration 01/26 strength Short Term Goal (STG Pt will demonstrate independence w/HEP by being able to ) perform with no more than min cues. 12/15-mod cues for 2/6 STG Duration 12/11 Correction Goal (LTG) Pt will score at least 4+/5 on all BLE MMT and at least 3/5 LPM to show improved strength to allow pt to return to active lifestyle 12/15-improving LTG Duration 02/02 Assessment Summary Assessment Pt had difficulty getting in with her work schedule and did not schedule more visits after last session. DC as has not been in for knee in 2 months Physical Therapy Plan Discharge Physical Therapy Discharge Reasons No Longer Attending PT
== END 2025-02-27 10:01 | disposition home or self-care (01) ==
LOC: PHYS 11:30
PROVIDERS: Family Provider Physician Assistant; PCP Physician Assistant; Referring Provider Orthopaedic Surgery; Visit Provider Orthopaedic Surgery
DX: M17.12 Unilateral primary osteoarthritis, left knee (principal); M25.562 Pain in left knee
CPT/HCPCS: 97110; 97140; 97162

== ENCOUNTER 2025-01-11 10:33 | Emergency (ER) | payer OTHER, SELFPAY ==
--- NOTE | 2025-01-11 10:47 | DI.RAD.S_ITS ---
PROCEDURE: XR WRIST LT MIN 3V INDICATIONS: injury TECHNIQUE: 3 views of the wrist were acquired. COMPARISON: None. FINDINGS: Bones: No fractures or dislocations. No suspicious bony lesions. Osteopenia and degenerative arthritic changes noted predominantly involving the 1st CMC and PIP joints Soft tissues: No suspicious soft tissue calcifications. IMPRESSION: No acute bony abnormality. Degenerative arthritic changes Dictated by: Ravin Reno M.D. on 01/11/2025 at 10:35 Approved by: Ravin Reno M.D. on 01/11/2025 at 10:38
[2025-01-11 10:48] VITALS: BP 181/90; PULSE 116; RESP 19; TEMP 36.6; O2SAT 99; BMI 25.6
--- NOTE | 2025-01-11 11:15 | ED.UPPEXIN ---
HPI - Extremity Injury (Upper) General Chief Complaint: Extremity Injury, Upper Stated Complaint: Injured on job/LT arm Time Seen by Provider: 01/11/25 10:53 Source: patient Mode of arrival: Family Vehicle History of Present Illness HPI narrative: Patient is a 69-year-old female history of ADHD presenting today with left wrist pain. She was at work she went to pull something off and it landed on her. She is having severe pain in her wrist radiating up to her elbow. She can move her fingers but it hurts. When she has to drive home as well. Related Data Home Medications ?Medication ?Instructions ?Recorded ?Confirmed cholecalciferol (vitamin D3) 25 25 mcg PO DAILY 03/16/20 11/11/24 mcg (1,000 unit) capsule (Vitamin D3) cyanocobalamin (vitamin B-12) 1,000 mcg PO DAILY 03/16/20 11/11/24 1,000 mcg tablet (Vitamin B-12) loratadine 10 mg tablet (Claritin) 10 mg PO DAILY 03/16/20 11/11/24 atorvastatin 10 mg tablet 10 mg PO DAILY 12/26/22 11/11/24 hydrocodone 5 mg-acetaminophen 325 tab PO 12/26/22 11/11/24 mg tablet albuterol sulfate 90 mcg/actuation 2 puff inhalation Q4-6H 02/06/24 11/11/24 aerosol inhaler dextroamphetamine-amphetamine 10 1 tab PO QAM attention deficit 02/06/24 11/11/24 mg tablet hyperactivity disorder dextroamphetamine-amphetamine ER 1 cap PO QAM attention deficit 02/06/24 11/11/24 20 mg 24hr capsule,extend release hyperactivity disorder polyethylene glycol 3350 17 g PO DIRECTED 02/06/24 11/11/24 gram/dose oral powder Previous Rx's ?Medication ?Instructions ?Recorded fluticasone propionate 50 2 spray intranasal DAILY #16 grams 10/08/20 mcg/actuation nasal spray,suspension (Flonase Allergy Relief) budesonide-formoterol HFA 160 2 puff inhalation BID #10.2 grams 03/26/24 mcg-4.5 mcg/actuation aerosol inhaler (Symbicort) Allergies Allergy/AdvReac Type Severity Reaction Status Date / Time bee venom protein (honey bee) Allergy Severe Anaphylaxis Verified 01/11/25 10:48 penicillin V Allergy Mild Swelling Verified 01/11/25 10:48 of Lip/Tongue/Throat latex Allergy Unknown ITCHING Verified 01/11/25 10:48 prednisone AdvReac Mild Confusion Verified 01/11/25 10:48 Patient History Medical History (Updated 01/11/25 @ 12:09 by Marisela Petty DO) Lumbar spondylosis Low back pain Reactive airways dysfunction syndrome Shortness of breath Social History Smoking Status: Current every day smoker Smoking Status: Current every day smoker tobacco type: cigarettes alcohol intake frequency: other Exam Initial Vital Signs Initial Vital Signs: Vital Signs Temperature 97.9 F 01/11/25 10:48 Pulse Rate 116 H 01/11/25 10:48 Respiratory Rate 19 01/11/25 10:48 Blood Pressure 181/90 H 01/11/25 10:48 Pulse Oximetry 99 01/11/25 10:48 Oxygen Delivery Method Room Air 01/11/25 10:48 GENERAL: Tearful 69-year-old female CARDIOVASCULAR: peripheral pulses in tact, cap refill <2 sec RESPIRATORY: No respiratory distress, speaks in full sentences without difficulty EXTREMITIES: Normal range of motion, no clubbing or edema. Neurovascularly intact Left wrist is swollen distal radial pulse is intact able to move fingers sensation between 1st and 2nd digit intact, no elbow shoulder or clavicle pain NEUROLOGICAL: Cranial nerves II through XII grossly intact. Normal gait and speech. SKIN: Warm, dry, no petechiae, no rashes or lesions. Course Orders Ordered: ED Orders 01/11/25 10:47 XR wrist LT min 3V Stat Discontinued Medications Acetaminophen (Acetaminophen 325 Mg Tablet) 975 mg PO NOW ONE Stop: 01/11/25 11:30 Last Admin: 01/11/25 11:34 Dose: 975 mg Documented By: BZ Vital Signs Vital signs: Vital Signs - 8 hr 01/11/25 10:48 01/11/25 12:38 Temperature 97.9 F Pulse Rate 116 H 94 H Respiratory Rate 19 18 Blood Pressure 181/90 H 198/82 H Pulse Oximetry 99 98 Oxygen Delivery Method Room Air Room Air MDM - Extremity Injury (Upper) Imaging Data Extremity x-ray #1: Radiologist's Impression: PROCEDURE: XR WRIST LT MIN 3V INDICATIONS: injury TECHNIQUE: 3 views of the wrist were acquired. COMPARISON: None. FINDINGS: Bones: No fractures or dislocations. No suspicious bony lesions. Osteopenia and degenerative arthritic changes noted predominantly involving the 1st CMC and PIP joints Soft tissues: No suspicious soft tissue calcifications. IMPRESSION: No acute bony abnormality. Degenerative arthritic changes Dictated by: Ravin Reno M.D. on 01/11/2025 at 10:35 Approved by: Ravin Reno M.D. on 01/11/2025 at 10:38 [facility] Narrative Medical decision making narrative: Patient is 61-year-old female presenting today with left wrist pain. X-ray has been reviewed both by Radiology and myself no acute fracture. However she is extremely tender she will be splinted recommend repeat x-rays. She has [place] at home. She is given Tylenol in the ED. She reports that she has Vicodin at home Discharge Plan Departure Patient Disposition: Home Clinical Impression: Left wrist sprain Instructions: DI for Wrist Sprain Activity Restrictions/Additional Instructions: *You have been diagnosed with left wrist sprain *What to do: At this time your x-ray is negative for broken bone and/or fracture. Your put in a splint to help give it some support. Do recommend repeating x-rays in about 7-10 days if you are still having pain. Elevate and ice as often as possible *Continue to take medications as directed Motrin 600 mg every 6 hours for [id number] pain [place] 1 tablet every 6 hours if needed for severe pain *Follow up with your primary care provider in 2-3 days or call [phone] *Return to ER if you should have increasing pain numbness weak or any new, worsening or concerning symptoms Prescriptions: No Action atorvastatin 10 mg tablet 10 mg PO DAILY hydrocodone-acetaminophen 5-325 mg tablet PO cyanocobalamin (vitamin B-12) [Vitamin B-12] 1,000 mcg Tablet 1,000 mcg PO DAILY loratadine [Claritin] 10 mg Tablet 10 mg PO DAILY cholecalciferol (vitamin D3) [Vitamin D3] 25 mcg (1,000 unit) Capsule 25 mcg PO DAILY fluticasone propionate [Flonase Allergy Relief] 50 mcg/actuation spray,suspension 2 spray intranasal DAILY Qty: 16 0RF Rx Instructions: administer into each nostril dextroamphetamine-amphetamine 20 mg capsule,extended release 24hr 1 cap PO QAM dextroamphetamine-amphetamine 10 mg tablet 1 tab PO QAM albuterol sulfate 90 mcg/actuation HFA aerosol inhaler 2 puff inhalation Q4-6H polyethylene glycol 3350 17 gram/dose powder PO DIRECTED budesonide-formoterol [Symbicort] 160-4.5 mcg/actuation HFA aerosol inhaler 2 puff inhalation BID Qty: 10.2 3RF Referrals: Malissa Jacques PA-C [Primary Care Provider, Medical] Stand Alone Forms: Patient Portal/API, Work Release Note
[2025-01-11] MEDS: ACETAMINOPHEN 325 MG TABLET 975 MG PO (11:34)
[2025-01-11 12:38] VITALS: BP 198/82; PULSE 94; RESP 18; O2SAT 98
== END 2025-01-11 12:30 | disposition home or self-care (01) ==
PROVIDERS: Emergency Provider Emergency Medicine; PCP Physician Assistant
DX: S63.502A Unspecified sprain of left wrist, initial encounter (principal); X58.XXXA Exposure to other specified factors, initial encounter
CPT/HCPCS: 73110; 99283

== ENCOUNTER → 2025-01-16 10:30 | Outpatient (CLI) | payer OTHER, SELFPAY ==
--- NOTE | 2025-01-16 10:32 | DI.US.S_ITS ---
PROCEDURE: US PERIPH VENOUS UP EXTREM LT
== END ==
PROVIDERS: PCP Physician Assistant; Referring Provider Internal Medicine; Visit Provider Internal Medicine
DX: M79.89 Other specified soft tissue disorders (principal)
CPT/HCPCS: 93971

== ENCOUNTER → 2025-02-20 15:04 | Outpatient (CLI) | payer OTHER, SELFPAY ==
--- NOTE | 2025-02-20 15:05 | DI.MRI.S_ITS ---
PROCEDURE: MR WRIST LT WO CON INDICATIONS: Evaluate for scapholunate tear, mass about wrist TECHNIQUE: Noncontrast coronal proton density fast spin echo and T2 fast spin echo with fat saturation; coronal 3-D gradient echo, axial T1 spin echo and T2 fast spin echo with fat saturation, sagittal T1 spin echo through the wrist. COMPARISON: [facility], CR, XR WRIST LT MIN 3V, 01/11/2025, 11:03. FINDINGS: Image quality: Excellent. Bones and cartilage: Moderate to severe osteoarthritic changes are noted throughout left wrist most notably involving 1st CMC joint and triscaphe joint. Marrow edema is noted involving trapezium and distal portion of scaphoid without discrete fracture line. Mild edema involving 1st metacarpal base is also seen without discrete fracture line. No other area of abnormal marrow signal. Carpal ligaments: The scapholunate and lunotriquetral ligaments appear intact. In the absence of intra-articular contrast, the extrinsic carpal ligaments are not well identified. On sagittal images, the pisohamate ligament appears intact. Triangular fibrocartilage complex: signal abnormality The within triangular fibrocartilage concerning for subtle TFC tear in its central and medial portion. The extensor carpi ulnaris tendon is mildly thickened with small amount of fluid distending tendon sheath at the level of distal ulnar shaft and ulnar styloid. Tendons and soft tissues: The carpal tunnel structures appear normal, including the median nerve. Moderate fluid distension of thickened flexor carpi radialis tendon at the level of distal radius and proximal carpal row is seen. The ulnar nerve appears normal within Guyon's canal. All six extensor tendon compartments demonstrate normal morphology, without pathologic tendon sheath fluid. No soft tissue ganglion cysts. IMPRESSION: 1. 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 No displaced fracture or dislocation. Edema involving distal portion of scaphoid , throughout trapezium and at 1st metacarpal base which may indicate contusion. Incomplete fracture involving trapezium cannot be entirely excluded. Clinical correlation and follow-up is recommended. No evidence of avascular necrosis at this time. 2. Scapholunate and lunotriquetral ligaments are intact. Suggestion of TFC tear in its mid portion and near its ulnar insertion. 3. Low-grade tenosynovitis involving extensor carpi ulnaris tendon at the level of ulnar styloid and distal ulna. 4. Low to moderate grade tenosynovitis involving flexor carpi radialis tendon at the level of distal radius and proximal carpal row. 5. Rest of the extensor and flexor tendons are intact. Dictated by: Bert Sheppard M.D. on 02/20/2025 at 20:16 Approved by: Bert Sheppard M.D. on 02/20/2025 at 20:30
== END ==
LOC: MRI 15:04
PROVIDERS: Family Provider Physician Assistant; PCP Physician Assistant; Referring Provider Physician Assistant; Visit Provider Physician Assistant Surgical
DX: S69.90XA Unspecified injury of unspecified wrist, hand and finger(s), initial encounter (principal); M19.032 Primary osteoarthritis, left wrist; M18.12 Unilateral primary osteoarthritis of first carpometacarpal joint, left hand; M65.932 Unspecified synovitis and tenosynovitis, left forearm
CPT/HCPCS: 73221